=== PATIENT | male | born 1955 | race Two or more races ===

== ENCOUNTER 2017-01-20 09:26 | Emergency (ER) | payer MEDICARE, OTHER ==
[~2017-01-20] VITALS: Ht 167.6 cm; Wt 86.2 kg
[~2017-01-20 09:26] MED LIST: ASP81EC PO; ATOR40TA52 PO; B-COTAB10 PO; FOLI1TAB6 PO; ISOS20TA49 PO; LEVO125T6 PO; MIDO10TA PO; [UNRECOGNIZED DRUG - CODE] PO
[2017-01-20 10:09] VITALS: BP 194/82
[2017-01-20 10:20] LABS: Basophils # (auto) 0 uL; Basophils % (auto) 0.6 % (0.0-2.0); Eosinophils # (auto) 0.4 uL; Eosinophils % (auto) 4.4 % (0.0-7.0); Hemoglobin 12.6 g/dL (13.5-17.5); Lymphocytes # (auto) 1.7 uL; Lymphocytes % (auto) 20.6 % (10.0-50.0); Mean Corpuscular Hemoglobin 32.5 pg (28.0-32.0); Mean Corpuscular Hgb Conc. 34.1 g/dL (32.0-36.0); Mean Corpuscular Volume 95.5 fL (80.0-100.0); Mean Platelet Volume 8.4 fL (6.9-10.8); Monocytes # (auto) 0.8 uL; Monocytes % (auto) 9.6 % (0.0-12.0); Neutrophils # (auto) 5.5 uL; Neutrophils % (auto) 64.8 % (37.0-80.0); Nucleated Red Blood Cells % 0.1 %; Platelet Count (auto) 198 10^3/uL (140-450); Red Cell Distribution Width 14.5 % (11.8-14.3); White Blood Cell 8.4 10^3/uL (4.4-10.8)
[2017-01-20 10:45] LABS: Albumin 3.8 g/dL (3.4-5.0); Alkaline Phosphatase 156 U/L (45-117); Anion Gap 7 (5-15); Aspartate Aminotransferase 17 U/L (15-37); BUN/Creatinine Ratio 6.5; Bilirubin, Total 0.3 mg/dL (0.2-1.0); Blood Urea Nitrogen 29 mg/dL (7-18); Calcium 8.4 mg/dL (8.5-10.1); Carbon Dioxide 33 mmol/L (21-32); Chloride 96 mmol/L (98-107); GFR African American 18 mL/min; GFR Non-African American 14 mL/min; Glucose 241 mg/dL (74-106); Potassium 3.4 mmol/L (3.5-5.1); Sodium 136 mmol/L (136-145); Total Protein 8.6 g/dL (6.4-8.2)
[2017-01-20 10:56] LABS: INR 0.95 (0.9-1.15); Partial Thromboplastin Time 26.8 sec (22.64-33.71); Prothrombin Time 10.3 sec (9.37-12.3)
== END 2017-01-20 13:29 | disposition home or self-care (01) ==
LOC: ER 09:26 → EDBD 09:26 → ER 13:29
DX: T82.43XA Leakage of vascular dialysis catheter, initial encounter (principal); I12.0 Hypertensive chronic kidney disease with stage 5 chronic kidney disease or end stage renal disease; N18.6 End stage renal disease; Z99.2 Dependence on renal dialysis; Z79.82 Long term (current) use of aspirin; X58.XXXA Exposure to other specified factors, initial encounter
CPT/HCPCS: 36415; 71010; 80053; 84484; 85025; 85610; 85730

== ENCOUNTER 2018-10-25 04:09 | Inpatient (IN) | payer MEDICARE, OTHER | END 2018-10-27 19:16 | disposition home or self-care (01) | LOC: ER 04:09 → TELE 04:10 → TELE-WESTW 12:58 | DX: I24.9 Acute ischemic heart disease, unspecified (principal); N18.6 End stage renal disease; J18.9 Pneumonia, unspecified organism; I13.2 Hypertensive heart and chronic kidney disease with heart failure and with stage 5 chronic kidney disease, or end stage renal disease; N39.0 Urinary tract infection, site not specified; E87.1 Hypo-osmolality and hyponatremia; I50.9 Heart failure, unspecified; E11.65 Type 2 diabetes mellitus with hyperglycemia; E78.5 Hyperlipidemia, unspecified; E11.22 Type 2 diabetes mellitus with diabetic chronic kidney disease; E03.9 Hypothyroidism, unspecified; D63.8 Anemia in other chronic diseases classified elsewhere; E11.51 Type 2 diabetes mellitus with diabetic peripheral angiopathy without gangrene ==

== ENCOUNTER → 2019-04-24 | Emergency (ER) | payer MEDICARE, OTHER ==
[~2019-04-24] VITALS: Ht 160 cm; Wt 128.4 kg
[~2019-04-24] MED LIST changes: +ALBUTEROL SULF 2.5 MG/0.5ML(0.5%) NEB SOLN NEB ONE; +CALCIUM GLUC 4.65meq/50ml D5AE 50 ML IV ONE; +DEXTROSE (50%) 50ML SYRG IV ONE; +INSUINJ37 SC; +InsuLIN REG 1unit/0.01ml Soln (100units/ml) IV ONE; -LEVO125T6 PO; +LEVO125T7 PO; -MIDO10TA PO; +MIDO10TA2 PO; +SODIUM BICARBONATE 8.4% INJ 50ML SYRINGE IV ONE; +SODIUM ZIRCONIUM CYCL 10 GM PAK PO ONE; +cloNIDine HCL 0.1 MG TAB PO ONE
[2019-04-24 06:51] LABS: Basophils # (auto) 0.1 10 ^3/uL (0-0.2); Eosinophils # (auto) 0.5 10 ^3/uL (0-0.8); Eosinophils % (auto) 5.4 % (0.0-7.0); Hematocrit 36.4 % (41.0-53.0); Hemoglobin 12.3 g/dL (13.5-17.5); Lymphocytes # (auto) 1.9 10 ^3/uL (0.4-5.4); Lymphocytes % (auto) 20.7 % (10.0-50.0); Mean Corpuscular Hemoglobin 33.4 pg (28.0-32.0); Mean Corpuscular Hgb Conc. 33.9 g/dL (32.0-36.0); Mean Corpuscular Volume 98.6 fL (80.0-100.0); Monocytes # (auto) 0.9 10 ^3/uL (0-1.3); Monocytes % (auto) 10.5 % (0.0-12.0); Neutrophils # (auto) 5.6 10 ^3/uL (1.6-8.6); Neutrophils % (auto) 62.4 % (37.0-80.0); Platelet Count (auto) 185 10^3/uL (140-450); Red Blood Cells 3.69 10^6/uL (4.5-5.90); Red Cell Distribution Width 15.3 % (11.8-14.3)
[2019-04-24 07:04] LABS: INR 1.05 (0.9-1.15); Partial Thromboplastin Time 28.4 sec (23.64-32.05)
[2019-04-24 07:21] LABS: Albumin 3.5 g/dL (3.4-5.0); BUN/Creatinine Ratio 6.4; Bilirubin, Total 0.4 mg/dL (0.2-1.0); Calcium 9.1 mg/dL (8.5-10.1)
[2019-04-24 07:28] LABS: Potassium 6.8 mmol/L (3.5-5.1)
[2019-04-24 08:45] VITALS: BP 186/53
== END | disposition home or self-care (01) ==
LOC: EDUNIT# 04:53 → EDBD 05:02 → ER 05:02
DX: E87.5 Hyperkalemia (principal); D53.9 Nutritional anemia, unspecified; T82.9XXA Unspecified complication of cardiac and vascular prosthetic device, implant and graft, initial encounter; I12.0 Hypertensive chronic kidney disease with stage 5 chronic kidney disease or end stage renal disease; E11.22 Type 2 diabetes mellitus with diabetic chronic kidney disease; N18.6 End stage renal disease; Z99.2 Dependence on renal dialysis; E78.5 Hyperlipidemia, unspecified; Z79.4 Long term (current) use of insulin; Z79.82 Long term (current) use of aspirin; Z79.899 Other long term (current) drug therapy
CPT/HCPCS: 36415; 71045; 80053; 85025; 85610; 85730; 86850; 86900; 86901

== ENCOUNTER → 2019-05-02 | Outpatient (CLI) | payer MEDICARE, OTHER ==
[~2019-05-02] VITALS: Ht 167.6 cm; Wt 82.1 kg
[~2019-05-02] MED LIST changes: +ADENOSINE 69 MG in GIVE UN-DILUTED 0 ML IV ONE; +ADENOSINE 90 MG/30 ML INJ IV ONE; -ALBUTEROL SULF 2.5 MG/0.5ML(0.5%) NEB SOLN NEB ONE; -CALCIUM GLUC 4.65meq/50ml D5AE 50 ML IV ONE; -DEXTROSE (50%) 50ML SYRG IV ONE; -InsuLIN REG 1unit/0.01ml Soln (100units/ml) IV ONE; -SODIUM BICARBONATE 8.4% INJ 50ML SYRINGE IV ONE; -SODIUM ZIRCONIUM CYCL 10 GM PAK PO ONE; -cloNIDine HCL 0.1 MG TAB PO ONE
== END | disposition home or self-care (01) ==
LOC: Rad HDHVI 13:08
PROVIDERS: ATTEND Internal Medicine Cardiovascular Disease
DX: E11.9 Type 2 diabetes mellitus without complications (principal); I10 Essential (primary) hypertension; E78.00 Pure hypercholesterolemia, unspecified
CPT/HCPCS: 78452; 93005; 93306; 96374; 96375; A9500; J0153

== ENCOUNTER → 2019-06-29 | Outpatient (CLI) | payer MEDICARE, OTHER ==
[~2019-06-29] MED LIST changes: -ADENOSINE 69 MG in GIVE UN-DILUTED 0 ML IV ONE; -ADENOSINE 90 MG/30 ML INJ IV ONE
== END | disposition home or self-care (01) ==
LOC: LAB 14:45
PROVIDERS: ATTEND Podiatrist Foot & Ankle Surgery
DX: M10.9 Gout, unspecified (principal)
CPT/HCPCS: 36415; 84550

== ENCOUNTER 2020-03-14 18:56 | Inpatient (IN) | payer OTHER, MEDICAID ==
[~2020-03-14] VITALS: Ht 167.6 cm; Wt 89.0 kg
[2020-03-14] MEDS ORDERED: cefTRIAXone 1GM/50ML D5W 50 ML IV ONE (19:30)
[2020-03-14] MEDS ORDERED: CLINDAMYCIN 900MG IV 50 ML IV ONE (19:30)
[2020-03-14 19:54] LABS: Basophils # (auto) 0.1 10 ^3/uL (0-0.2); Basophils % (auto) 0.5 % (0.0-2.0); Eosinophils # (auto) 0.2 10 ^3/uL (0-0.8); Eosinophils % (auto) 1.6 % (0.0-7.0); Hematocrit 29.7 % (41.0-53.0); Hemoglobin 10.2 g/dL (13.5-17.5); Lymphocytes # (auto) 1.6 10 ^3/uL (0.4-5.4); Lymphocytes % (auto) 12.1 % (10.0-50.0); Mean Corpuscular Hemoglobin 33.1 pg (28.0-32.0); Mean Corpuscular Hgb Conc. 34.4 g/dL (32.0-36.0); Mean Corpuscular Volume 96.2 fL (80.0-100.0); Monocytes # (auto) 1.5 10 ^3/uL (0-1.3); Monocytes % (auto) 11.5 % (0.0-12.0); Neutrophils # (auto) 9.5 10 ^3/uL (1.6-8.6); Neutrophils % (auto) 74.3 % (37.0-80.0); Platelet Count (auto) 270 10^3/uL (140-450); Red Blood Cells 3.09 10^6/uL (4.5-5.90); Red Cell Distribution Width 13.4 % (11.8-14.3); White Blood Cell 12.8 10^3/uL (4.4-10.8)
[2020-03-14 20:08] LABS: Albumin 3.4 g/dL (3.4-5.0); Calcium 8.1 mg/dL (8.5-10.1); INR 1.04 (0.9-1.15); Partial Thromboplastin Time 28.8 sec (23.0-31.2); Potassium 4.3 mmol/L (3.5-5.1)
[2020-03-14 20:11] LABS: BUN/Creatinine Ratio 5.2; Bilirubin, Total 0.4 mg/dL (0.2-1.0); Total Protein 9.1 g/dL (6.4-8.2)
[2020-03-15] MEDS ORDERED: NITROGLYCERIN 0.4 MG SL TAB SL PRN (01:45)
[2020-03-15] MEDS ORDERED: MORPHINE SULFATE 4 MG/ML SYR/VIAL IV PRN (01:45)
[2020-03-15] MEDS ORDERED: HYDROcodone-ACET 5/325MG TAB PO PRN (01:45)
[2020-03-15] MEDS ORDERED: ACETAMINOPHEN 325 MG TAB PO PRN (01:45)
[2020-03-15] MEDS ORDERED: DOCUSATE SOD 100 MG CAP PO PRN (01:45)
[2020-03-15] MEDS ORDERED: MORPHINE SULF INJ 2 MG/ML SYRINGE 1ML IV PRN (01:45)
[2020-03-15] MEDS ORDERED: ONDANSETRON HCL 4 MG/2 ML VIAL IV PRN (01:45)
[2020-03-15] MEDS ORDERED: DEXTROSE (50%) 50ML SYRG IV PRN (01:45)
[2020-03-15] MEDS: InsuLIN REG 1unit/0.01ml Soln (100units/ml) SC SCH ×4 (06:37→22:13)
[2020-03-15] MEDS: ACCU-CHEK COMFORT CURVE STRIP VI SCH ×4 (06:38→22:14)
[2020-03-15 06:42] LABS: Potassium 4.5 mmol/L (3.5-5.1)
[2020-03-15 06:53] LABS: Basophils # (auto) 0.1 10 ^3/uL (0-0.2); Basophils % (auto) 0.9 % (0.0-2.0); Eosinophils # (auto) 0.2 10 ^3/uL (0-0.8); Eosinophils % (auto) 2.4 % (0.0-7.0); Hematocrit 26.3 % (41.0-53.0); Lymphocytes # (auto) 1.6 10 ^3/uL (0.4-5.4); Lymphocytes % (auto) 16.4 % (10.0-50.0); Mean Corpuscular Hemoglobin 32.6 pg (28.0-32.0); Mean Corpuscular Hgb Conc. 34.1 g/dL (32.0-36.0); Mean Corpuscular Volume 95.4 fL (80.0-100.0); Monocytes # (auto) 1.2 10 ^3/uL (0-1.3); Monocytes % (auto) 12.7 % (0.0-12.0); Neutrophils # (auto) 6.6 10 ^3/uL (1.6-8.6); Neutrophils % (auto) 67.6 % (37.0-80.0); Platelet Count (auto) 260 10^3/uL (140-450); Red Blood Cells 2.76 10^6/uL (4.5-5.90); Red Cell Distribution Width 13.5 % (11.8-14.3); White Blood Cell 9.7 10^3/uL (4.4-10.8)
[2020-03-15] MEDS ORDERED: LEVOTHYROXINE SODIUM 50 MCG TAB PO SCH (07:00)
[2020-03-15 07:21] LABS: Albumin 2.7 g/dL (3.4-5.0); BUN/Creatinine Ratio 5.4; Bilirubin, Total 0.3 mg/dL (0.2-1.0); Calcium 7.9 mg/dL (8.5-10.1); Total Protein 7.5 g/dL (6.4-8.2)
[2020-03-15 07:24] LABS: Cholesterol 112 mg/dL (< 200); HDL Cholesterol 34 mg/dL (40-59); LDL Cholesterol 57 mg/dL (< 100); Triglycerides 118 mg/dL (< 150)
[2020-03-15] MEDS: CALCIUM ACETATE 667 MG CAP PO SCH ×3 (08:19→18:19)
[2020-03-15] MEDS: SODIUM CHLOR 0.9% PF (SALINE LOCK) 10ML VIAL/SYR IV SCH ×3 (08:19→21:46)
[2020-03-15] MEDS ORDERED: LABETALOL HCL 5 MG/ML 4ML SYRINGE IV ONE (09:45)
[2020-03-15] MEDS ORDERED: hydrALAZINE HCL 20 MG/ML VL IV ONE (09:45)
[2020-03-15] MEDS ORDERED: ASPirin 81 mg TAB PO SCH ×2 (10:00)
[2020-03-15] MEDS ORDERED: FAMOTIDINE (10MG/ML) 2ML VL IV SCH (10:00)
[2020-03-15] MEDS: ASCORBIC ACID 500 MG TAB PO SCH ×2 (10:18→21:47)
[2020-03-15] MEDS: PIPERACILLIN-TAZOB 2.25GM 50 ML IV SCH (10:18)
[2020-03-15] MEDS: ZINC SULFATE 220mg CAP or TAB PO SCH (10:18)
[2020-03-15] MEDS: B-COMPLEX W/ C & FOLIC ACID(NEPHROVITE TAB) PO SCH (10:18)
[2020-03-15] MEDS: HEPARIN SODIUM (PORCINE) 5000 UNITS/ML 1ML VIAL SC SCH ×2 (10:39→22:00)
[2020-03-15] MEDS: ISOSORBIDE MONONITRATE ER 60 MG TAB PO SCH (10:46)
[2020-03-15] MEDS: FOLIC ACID 1 MG TAB PO SCH (10:47)
[2020-03-15] MEDS ORDERED: PANTOPRAZOLE 40 MG/10 ML VIAL INJ IV ONE (11:30)
[2020-03-15] MEDS ORDERED: hydrALAZINE HCL 20 MG/ML VL IV PRN (12:00)
[2020-03-15] MEDS ORDERED: SODIUM CHL 0.9% 1000 ML BAG XX ONE (12:00)
[2020-03-15 12:10] LABS: Hematocrit 25.5 % (41.0-53.0); Hemoglobin 8.8 g/dL (13.5-17.5)
[2020-03-15] MEDS: CLINDAMYCIN 600MG IV 50 ML IV SCH ×2 (14:02→21:46)
[2020-03-15] MEDS: LABETALOL HCL 5 MG/ML 4ML SYRINGE IV PRN (17:49)
[2020-03-15 17:59] LABS: Hematocrit 25.6 % (41.0-53.0); Hemoglobin 8.8 g/dL (13.5-17.5)
[2020-03-15] MEDS: CALCIUM CARB 500 MG CHEW TAB PO SCH (18:19)
[2020-03-15] MEDS ORDERED: EPOETIN ALFA 4,000 UNIT/ML VL SC ONE (21:00)
[2020-03-15] MEDS ORDERED: HEPARIN SODIUM (PORCINE) 5000 UNITS/ML 1ML VIAL ONE (21:25)
[2020-03-15] MEDS: ATORVASTATIN 20 MG TAB PO SCH (21:47)
[2020-03-15] MEDS: PANTOPRAZOLE 40 MG TAB PO SCH (21:47)
[2020-03-15] MEDS: INSULIN LANTUS (GLARGINE) 1 /0.01ml (100units/ml) SC SCH (22:33)
[2020-03-16] VITALS (11 sets, daily range): BP systolic 127–184; BP diastolic 32–83
[2020-03-16] MEDS: PIPERACILLIN-TAZOB 2.25GM 50 ML IV SCH ×3 (00:27→22:00)
[2020-03-16 02:10] LABS: Hematocrit 24.8 % (41.0-53.0); Hemoglobin 8.5 g/dL (13.5-17.5)
[2020-03-16 05:11] LABS: Eosinophils # (auto) 0.3 10 ^3/uL (0-0.8); Eosinophils % (auto) 2.8 % (0.0-7.0); Hemoglobin 8.3 g/dL (13.5-17.5); Monocytes # (auto) 1.1 10 ^3/uL (0-1.3)
[2020-03-16 05:15] LABS: Basophils # (auto) 0 10 ^3/uL (0-0.2); Basophils % (auto) 0.5 % (0.0-2.0); Hematocrit 23.8 % (41.0-53.0); Lymphocytes # (auto) 1.8 10 ^3/uL (0.4-5.4); Lymphocytes % (auto) 20.3 % (10.0-50.0); Mean Corpuscular Hemoglobin 33.5 pg (28.0-32.0); Mean Corpuscular Hgb Conc. 34.9 g/dL (32.0-36.0); Mean Corpuscular Volume 95.8 fL (80.0-100.0); Monocytes % (auto) 11.8 % (0.0-12.0); Neutrophils # (auto) 5.8 10 ^3/uL (1.6-8.6); Neutrophils % (auto) 64.6 % (37.0-80.0); Platelet Count (auto) 248 10^3/uL (140-450); Red Blood Cells 2.48 10^6/uL (4.5-5.90); Red Cell Distribution Width 13.5 % (11.8-14.3)
[2020-03-16 05:24] LABS: Potassium 4.5 mmol/L (3.5-5.1)
[2020-03-16 05:36] LABS: Albumin 2.6 g/dL (3.4-5.0); BUN/Creatinine Ratio 6.2; Calcium 8.1 mg/dL (8.5-10.1); Total Protein 6.9 g/dL (6.4-8.2)
[2020-03-16 05:37] LABS: Bilirubin, Total 0.3 mg/dL (0.2-1.0)
[2020-03-16] MEDS: CLINDAMYCIN 600MG IV 50 ML IV SCH ×3 (05:43→21:21)
[2020-03-16] MEDS: SODIUM CHLOR 0.9% PF (SALINE LOCK) 10ML VIAL/SYR IV SCH ×3 (06:15→21:57)
[2020-03-16] MEDS: ACCU-CHEK COMFORT CURVE STRIP VI SCH ×4 (07:30→21:56)
[2020-03-16] MEDS: INSULIN LANTUS (GLARGINE) 1 /0.01ml (100units/ml) SC SCH ×2 (07:50→21:56)
[2020-03-16] MEDS: InsuLIN REG 1unit/0.01ml Soln (100units/ml) SC SCH ×4 (07:50→21:55)
[2020-03-16] MEDS: LEVOTHYROXINE SODIUM 50 MCG TAB PO SCH (08:00)
[2020-03-16] MEDS: CALCIUM ACETATE 667 MG CAP PO SCH ×3 (08:07→18:00)
[2020-03-16] MEDS: CALCIUM CARB 500 MG CHEW TAB PO SCH ×2 (08:07→18:00)
[2020-03-16 10:04] LABS: Urine Bacteria FEW /hpf (None Seen); Urine Blood Negative /uL (Negative); Urine Specific Gravity 1.014 (1.001-1.035); Urine Sperm PRESENT /hpf (None Seen); Urine WBC 1 /hpf (0 - 3)
[2020-03-16] MEDS: ISOSORBIDE MONONITRATE ER 60 MG TAB PO SCH (10:30)
[2020-03-16] MEDS: B-COMPLEX W/ C & FOLIC ACID(NEPHROVITE TAB) PO SCH (10:30)
[2020-03-16] MEDS: FOLIC ACID 1 MG TAB PO SCH (10:30)
[2020-03-16] MEDS: PANTOPRAZOLE 40 MG TAB PO SCH ×2 (10:30→21:56)
[2020-03-16] MEDS: HEPARIN SODIUM (PORCINE) 5000 UNITS/ML 1ML VIAL SC SCH ×2 (10:30→21:54)
[2020-03-16] MEDS: ASCORBIC ACID 500 MG TAB PO SCH ×2 (10:30→21:21)
[2020-03-16] MEDS: ZINC SULFATE 220mg CAP or TAB PO SCH (10:30)
[2020-03-16] MEDS: ASPirin-EC 81 mg tab PO SCH (10:30)
[2020-03-16] MEDS ORDERED: CARV6.25 PO (17:37)
[2020-03-16] MEDS: Glucerna Carbsteady SHAKE Vanilla 8oz PO SCH (18:00)
[2020-03-16] MEDS: ATORVASTATIN 20 MG TAB PO SCH (21:20)
[2020-03-16] MEDS: CARVEDILOL 3.125 MG TAB PO SCH (21:20)
[2020-03-17 05:00] VITALS: BP 136/72
[2020-03-17] MEDS: INSULIN LANTUS (GLARGINE) 1 /0.01ml (100units/ml) SC SCH ×2 (06:26→23:46)
[2020-03-17] MEDS: SODIUM CHLOR 0.9% PF (SALINE LOCK) 10ML VIAL/SYR IV SCH ×3 (06:26→23:25)
[2020-03-17] MEDS: ACCU-CHEK COMFORT CURVE STRIP VI SCH ×4 (06:26→23:47)
[2020-03-17] MEDS: InsuLIN REG 1unit/0.01ml Soln (100units/ml) SC SCH ×4 (06:26→23:45)
[2020-03-17] MEDS: LEVOTHYROXINE SODIUM 50 MCG TAB PO SCH (06:39)
[2020-03-17] MEDS: CLINDAMYCIN 600MG IV 50 ML IV SCH ×3 (06:39→23:24)
[2020-03-17] MEDS ORDERED: BUPIVACAINE 0.5% MPF INJ 30ML SDV IJ ONE (07:47)
[2020-03-17] MEDS ORDERED: LIDOCAINE 1% HCL (LOCAL ANESTH.) INJ 20ML MDV ONE (07:47)
[2020-03-17] MEDS ORDERED: BUPIVACAINE HCL 0 ML ONE (07:49)
[2020-03-17] MEDS: CALCIUM CARB 500 MG CHEW TAB PO SCH ×2 (08:00→18:20)
[2020-03-17] MEDS: CALCIUM ACETATE 667 MG CAP PO SCH ×3 (08:00→18:20)
[2020-03-17] MEDS: Glucerna Carbsteady SHAKE Vanilla 8oz PO SCH ×3 (08:00→18:19)
[2020-03-17] MEDS ORDERED: SUCCINYLCHOLINE CHLORIDE 20 MG/ML 10ML VIAL IV ONE (08:23)
[2020-03-17] MEDS ORDERED: LIDOCAINE 1% (LOCAL ANESTH.) PF 5ml SDV ONE (08:23)
[2020-03-17 08:25] LABS: Basophils # (auto) 0.1 10 ^3/uL (0-0.2); Basophils % (auto) 0.7 % (0.0-2.0); Eosinophils # (auto) 0.3 10 ^3/uL (0-0.8); Eosinophils % (auto) 2.7 % (0.0-7.0); Hematocrit 28.3 % (41.0-53.0); Hemoglobin 9.9 g/dL (13.5-17.5); Lymphocytes # (auto) 1.4 10 ^3/uL (0.4-5.4); Lymphocytes % (auto) 14.7 % (10.0-50.0); Mean Corpuscular Hemoglobin 32.7 pg (28.0-32.0); Mean Corpuscular Hgb Conc. 34.8 g/dL (32.0-36.0); Monocytes # (auto) 1.2 10 ^3/uL (0-1.3); Monocytes % (auto) 12.1 % (0.0-12.0); Neutrophils # (auto) 6.8 10 ^3/uL (1.6-8.6); Neutrophils % (auto) 69.8 % (37.0-80.0); Nucleated Red Blood Cells % 0.1 %; Platelet Count (auto) 281 10^3/uL (140-450); Red Blood Cells 3.01 10^6/uL (4.5-5.90); Red Cell Distribution Width 14.4 % (11.8-14.3); White Blood Cell 9.8 10^3/uL (4.4-10.8)
[2020-03-17] MEDS ORDERED: METOCLOPRAMIDE HCL 5MG/ml INJ 2ml VIAL ONE (08:28)
[2020-03-17] MEDS ORDERED: MIDAZOLAM HCL 1MG/1ML-2 ML VIAL ONE (08:28)
[2020-03-17] MEDS ORDERED: diphenhdrAMINE HCL 50 MG/1 ML VL ONE (08:28)
[2020-03-17] MEDS ORDERED: GLYCOPYRROLATE 0.2 MG/ML 1ML VIAL ONE (08:33)
[2020-03-17] MEDS ORDERED: fentaNYL CITRATE 100 MCG/2 ML VL ONE (08:34)
[2020-03-17] MEDS ORDERED: PROPOFOL 10 MG/ML 20 ML IV ONE (08:35)
[2020-03-17 08:45] LABS: Calcium 8.1 mg/dL (8.5-10.1); Potassium 4.5 mmol/L (3.5-5.1)
[2020-03-17 08:48] LABS: BUN/Creatinine Ratio 5.6
[2020-03-17] MEDS ORDERED: ONDANSETRON HCL 4 MG/2 ML VIAL IV PRN (09:00)
[2020-03-17] MEDS ORDERED: hydrALAZINE HCL 20 MG/ML VL IV PRN (09:00)
[2020-03-17] MEDS ORDERED: ACCU-CHEK COMFORT CURVE STRIP VI ONE (09:00)
[2020-03-17] MEDS ORDERED: HYDROmorphone HCL 2 MG/ML VL IV PRN ×2 (09:00)
[2020-03-17] MEDS: HEPARIN SODIUM (PORCINE) 5000 UNITS/ML 1ML VIAL SC SCH ×2 (10:00→23:33)
[2020-03-17] MEDS: PIPERACILLIN-TAZOB 2.25GM 50 ML IV SCH (10:39)
[2020-03-17] MEDS: PANTOPRAZOLE 40 MG TAB PO SCH ×2 (12:42→23:55)
[2020-03-17] MEDS: ISOSORBIDE MONONITRATE ER 60 MG TAB PO SCH (12:42)
[2020-03-17] MEDS: ASPirin-EC 81 mg tab PO SCH (12:42)
[2020-03-17] MEDS: B-COMPLEX W/ C & FOLIC ACID(NEPHROVITE TAB) PO SCH (12:42)
[2020-03-17] MEDS: ASCORBIC ACID 500 MG TAB PO SCH ×2 (12:42→23:55)
[2020-03-17] MEDS: ZINC SULFATE 220mg CAP or TAB PO SCH (12:42)
[2020-03-17] MEDS: FOLIC ACID 1 MG TAB PO SCH (12:42)
[2020-03-17] MEDS: CARVEDILOL 3.125 MG TAB PO SCH ×2 (12:43→23:26)
[2020-03-17] MEDS ORDERED: IOHEXOL 350 MG/ML 100ML IJ ONE (14:21)
[2020-03-17] MEDS ORDERED: LIDOCAINE 2%HCL (LOCAL ANESTH.) INJ 20ML MDV ONE (14:21)
[2020-03-17] MEDS ORDERED: HEPARIN IN NS 1000Units/500mL 0 ML ONE (14:21)
[2020-03-17 16:00] VITALS: BP 138/44
[2020-03-17 20:00] VITALS: BP 185/75
[2020-03-17] MEDS ORDERED: cefTRIAXone 1GM/50ML D5W 50 ML IV SCH (21:00)
[2020-03-17] MEDS: ATORVASTATIN 20 MG TAB PO SCH (23:56)
[2020-03-18] MEDS: CLINDAMYCIN 600MG IV 50 ML IV SCH ×3 (06:12→22:00)
[2020-03-18] MEDS: SODIUM CHLOR 0.9% PF (SALINE LOCK) 10ML VIAL/SYR IV SCH ×3 (06:15→23:58)
[2020-03-18] MEDS: InsuLIN REG 1unit/0.01ml Soln (100units/ml) SC SCH ×3 (06:15→17:18)
[2020-03-18] MEDS: ACCU-CHEK COMFORT CURVE STRIP VI SCH ×3 (06:17→17:14)
[2020-03-18] MEDS: LEVOTHYROXINE SODIUM 50 MCG TAB PO SCH (06:51)
[2020-03-18] MEDS: INSULIN LANTUS (GLARGINE) 1 /0.01ml (100units/ml) SC SCH (07:00)
[2020-03-18] MEDS ORDERED: SODIUM CHL 0.9% 1000 ML BAG XX ONE (07:00)
[2020-03-18 08:00] VITALS: BP 157/65
[2020-03-18] MEDS: Glucerna Carbsteady SHAKE Vanilla 8oz PO SCH ×3 (08:00→17:14)
[2020-03-18] MEDS: CALCIUM ACETATE 667 MG CAP PO SCH ×3 (09:18→17:15)
[2020-03-18] MEDS: ZINC SULFATE 220mg CAP or TAB PO SCH (09:18)
[2020-03-18] MEDS: ASPirin-EC 81 mg tab PO SCH (09:18)
[2020-03-18] MEDS: CALCIUM CARB 500 MG CHEW TAB PO SCH ×2 (09:18→17:15)
[2020-03-18] MEDS: FOLIC ACID 1 MG TAB PO SCH (09:18)
[2020-03-18] MEDS: PANTOPRAZOLE 40 MG TAB PO SCH (09:18)
[2020-03-18] MEDS: HEPARIN SODIUM (PORCINE) 5000 UNITS/ML 1ML VIAL SC SCH (09:19)
[2020-03-18] MEDS: B-COMPLEX W/ C & FOLIC ACID(NEPHROVITE TAB) PO SCH (09:19)
[2020-03-18] MEDS: ASCORBIC ACID 500 MG TAB PO SCH (09:19)
[2020-03-18 10:40] LABS: Basophils # (auto) 0.1 10 ^3/uL (0-0.2); Basophils % (auto) 0.8 % (0.0-2.0); Eosinophils # (auto) 0.2 10 ^3/uL (0-0.8); Eosinophils % (auto) 2.7 % (0.0-7.0); Hemoglobin 9.3 g/dL (13.5-17.5); Lymphocytes # (auto) 1.6 10 ^3/uL (0.4-5.4); Lymphocytes % (auto) 18.1 % (10.0-50.0); Mean Corpuscular Hemoglobin 32.4 pg (28.0-32.0); Mean Corpuscular Hgb Conc. 34.3 g/dL (32.0-36.0); Mean Corpuscular Volume 94.4 fL (80.0-100.0); Monocytes # (auto) 0.7 10 ^3/uL (0-1.3); Monocytes % (auto) 8.3 % (0.0-12.0); Neutrophils # (auto) 6.1 10 ^3/uL (1.6-8.6); Neutrophils % (auto) 70.1 % (37.0-80.0); Platelet Count (auto) 274 10^3/uL (140-450); Red Blood Cells 2.87 10^6/uL (4.5-5.90); Red Cell Distribution Width 14.1 % (11.8-14.3); White Blood Cell 8.8 10^3/uL (4.4-10.8)
[2020-03-18 11:10] LABS: Albumin 2.5 g/dL (3.4-5.0); Calcium 7.8 mg/dL (8.5-10.1); Potassium 4.9 mmol/L (3.5-5.1)
[2020-03-18 11:13] LABS: Bilirubin, Total 0.3 mg/dL (0.2-1.0); Total Protein 7.1 g/dL (6.4-8.2)
[2020-03-18] MEDS: ISOSORBIDE MONONITRATE ER 60 MG TAB PO SCH (14:16)
[2020-03-18] MEDS: CARVEDILOL 3.125 MG TAB PO SCH ×2 (14:16→23:59)
[2020-03-18 16:00] VITALS: BP 173/76
[2020-03-18] MEDS: CEFEPIME 1 GM in SODIUM CHL 0.9% 50 ML IV ONE ×2 (17:15→18:16)
[2020-03-18 20:00] VITALS: BP 133/63
[2020-03-18] MEDS ORDERED: EPOETIN ALFA 10,000 UNIT/1 ML VIAL SC ONE (21:00)
[2020-03-18 22:00] VITALS: BP 133/63
[2020-03-19] MEDS: ATORVASTATIN 20 MG TAB PO SCH (00:01)
[2020-03-19] MEDS: ASCORBIC ACID 500 MG TAB PO SCH ×2 (00:02→11:28)
[2020-03-19] MEDS: PANTOPRAZOLE 40 MG TAB PO SCH ×2 (00:02→11:29)
[2020-03-19] MEDS: HEPARIN SODIUM (PORCINE) 5000 UNITS/ML 1ML VIAL SC SCH ×3 (00:03→22:00)
[2020-03-19] MEDS: InsuLIN REG 1unit/0.01ml Soln (100units/ml) SC SCH ×4 (00:06→18:19)
[2020-03-19] MEDS: INSULIN LANTUS (GLARGINE) 1 /0.01ml (100units/ml) SC SCH ×2 (00:07→07:33)
[2020-03-19] MEDS: ACCU-CHEK COMFORT CURVE STRIP VI SCH ×4 (00:08→17:25)
[2020-03-19] MEDS: CARVEDILOL 3.125 MG TAB PO SCH (00:10)
[2020-03-19 05:00] VITALS: BP 120/49
[2020-03-19] MEDS: CLINDAMYCIN 600MG IV 50 ML IV SCH ×2 (05:41→15:14)
[2020-03-19] MEDS: SODIUM CHLOR 0.9% PF (SALINE LOCK) 10ML VIAL/SYR IV SCH ×2 (06:00→14:00)
[2020-03-19] MEDS: LEVOTHYROXINE SODIUM 50 MCG TAB PO SCH (07:31)
[2020-03-19 08:00] VITALS: BP 140/66
[2020-03-19] MEDS: CALCIUM CARB 500 MG CHEW TAB PO SCH ×2 (08:00→18:00)
[2020-03-19] MEDS: Glucerna Carbsteady SHAKE Vanilla 8oz PO SCH ×3 (08:00→18:19)
[2020-03-19] MEDS: CALCIUM ACETATE 667 MG CAP PO SCH ×3 (08:47→17:56)
[2020-03-19] MEDS: ZINC SULFATE 220mg CAP or TAB PO SCH (11:27)
[2020-03-19] MEDS: FOLIC ACID 1 MG TAB PO SCH (11:27)
[2020-03-19] MEDS: ASPirin-EC 81 mg tab PO SCH (11:27)
[2020-03-19] MEDS: B-COMPLEX W/ C & FOLIC ACID(NEPHROVITE TAB) PO SCH (11:28)
[2020-03-19] MEDS: ISOSORBIDE MONONITRATE ER 60 MG TAB PO SCH (11:30)
[2020-03-19] MEDS: CEFEPIME 0.5 GM in SODIUM CHL 0.9% 50 ML IV SCH (12:42)
[2020-03-19 14:30] LABS: INR 1.04 (0.9-1.15); Partial Thromboplastin Time 29.6 sec (23.0-31.2)
[2020-03-19] MEDS ORDERED: PANT40TA2 PO (15:43)
[2020-03-19] MEDS ORDERED: CEFD300C2 PO (15:43)
[2020-03-19 16:00] VITALS: BP 168/76
[2020-03-19] MEDS: LABETALOL HCL 5 MG/ML 4ML SYRINGE IV PRN (17:55)
[2020-03-19 18:55] VITALS: BP 151/67
[2020-03-19 20:00] VITALS: BP 162/76
[2020-03-19 22:00] VITALS: BP 162/76
[2020-03-19] MEDS ORDERED: HEPARIN SODIUM (PORCINE) 5000 UNITS/ML 1ML VIAL ONE ×2 (22:11→22:12)
[2020-03-20] MEDS: CLINDAMYCIN 600MG IV 50 ML IV SCH ×2 (00:18→06:00)
[2020-03-20] MEDS: SODIUM CHLOR 0.9% PF (SALINE LOCK) 10ML VIAL/SYR IV SCH ×3 (00:18→14:01)
[2020-03-20] MEDS: CARVEDILOL 3.125 MG TAB PO SCH ×2 (00:20→00:41)
[2020-03-20] MEDS: ATORVASTATIN 20 MG TAB PO SCH (00:20)
[2020-03-20] MEDS: PANTOPRAZOLE 40 MG TAB PO SCH ×2 (00:20→10:14)
[2020-03-20] MEDS: ASCORBIC ACID 500 MG TAB PO SCH ×2 (00:21→10:14)
[2020-03-20] MEDS: InsuLIN REG 1unit/0.01ml Soln (100units/ml) SC SCH ×3 (00:32→11:19)
[2020-03-20] MEDS: INSULIN LANTUS (GLARGINE) 1 /0.01ml (100units/ml) SC SCH ×2 (00:33→07:06)
[2020-03-20] MEDS: ACCU-CHEK COMFORT CURVE STRIP VI SCH ×3 (00:35→11:19)
[2020-03-20 05:00] VITALS: BP 145/66
[2020-03-20] MEDS ORDERED: SODIUM CHL 0.9% 1000 ML BAG XX ONE (07:00)
[2020-03-20] MEDS: LEVOTHYROXINE SODIUM 50 MCG TAB PO SCH (07:07)
[2020-03-20 08:00] VITALS: BP_SYST 156; BP_SYST 158; BP_DIAS 71; BP_DIAS 79
[2020-03-20] MEDS: CALCIUM ACETATE 667 MG CAP PO SCH ×2 (08:00→11:20)
[2020-03-20] MEDS: CALCIUM CARB 500 MG CHEW TAB PO SCH (08:00)
[2020-03-20] MEDS: Glucerna Carbsteady SHAKE Vanilla 8oz PO SCH ×2 (08:00→11:20)
[2020-03-20] MEDS: HEPARIN SODIUM (PORCINE) 5000 UNITS/ML 1ML VIAL SC SCH (10:00)
[2020-03-20] MEDS: ISOSORBIDE MONONITRATE ER 60 MG TAB PO SCH (10:14)
[2020-03-20] MEDS: FOLIC ACID 1 MG TAB PO SCH (10:14)
[2020-03-20] MEDS: CEFEPIME 0.5 GM in SODIUM CHL 0.9% 50 ML IV SCH (10:14)
[2020-03-20] MEDS: B-COMPLEX W/ C & FOLIC ACID(NEPHROVITE TAB) PO SCH (10:14)
[2020-03-20] MEDS: ZINC SULFATE 220mg CAP or TAB PO SCH (10:14)
[2020-03-20] MEDS: ASPirin-EC 81 mg tab PO SCH (10:14)
[2020-03-20 14:04] VITALS: BP 145/76
[2020-03-20] MEDS ORDERED: EPOETIN ALFA 10,000 UNIT/1 ML VIAL SC ONE (21:00)
== END 2020-03-20 17:10 | disposition home health service (06) | DRG 255 ==
LOC: ER 18:56 → TELE 03-15 01:44 → TELE-WESTW 03-16 17:06
PROVIDERS: ADMIT Nurse Practitioner Family; ATTEND Internal Medicine
PROC: 30230N1 Transfusion of Nonautologous Red Blood Cells into Peripheral Vein, Open Approach (ICD-10-PCS; 2020-03-16)
PROC: 5A1D70Z Performance of Urinary Filtration, Intermittent, Less than 6 Hours Per Day (ICD-10-PCS; 2020-03-16)
PROC: 0Y6V0Z0 Detachment at Right 4th Toe, Complete, Open Approach (ICD-10-PCS; principal; 2020-03-17 08:24)
PROC: 5A1D70Z Performance of Urinary Filtration, Intermittent, Less than 6 Hours Per Day (ICD-10-PCS; 2020-03-18)
PROC: 5A1D70Z Performance of Urinary Filtration, Intermittent, Less than 6 Hours Per Day (ICD-10-PCS; 2020-03-20)
DX: E11.52 Type 2 diabetes mellitus with diabetic peripheral angiopathy with gangrene (principal); N18.6 End stage renal disease; L03.115 Cellulitis of right lower limb; E87.1 Hypo-osmolality and hyponatremia; I12.0 Hypertensive chronic kidney disease with stage 5 chronic kidney disease or end stage renal disease; M86.8X7 Other osteomyelitis, ankle and foot; E11.621 Type 2 diabetes mellitus with foot ulcer; D63.8 Anemia in other chronic diseases classified elsewhere; E11.65 Type 2 diabetes mellitus with hyperglycemia; D72.829 Elevated white blood cell count, unspecified; I10 Essential (primary) hypertension; I73.9 Peripheral vascular disease, unspecified; E03.9 Hypothyroidism, unspecified; E11.21 Type 2 diabetes mellitus with diabetic nephropathy; E78.5 Hyperlipidemia, unspecified; Z20.822 Contact with and (suspected) exposure to COVID-19; E11.22 Type 2 diabetes mellitus with diabetic chronic kidney disease; E11.69 Type 2 diabetes mellitus with other specified complication; I25.10 Atherosclerotic heart disease of native coronary artery without angina pectoris; L97.519 Non-pressure chronic ulcer of other part of right foot with unspecified severity; Z99.2 Dependence on renal dialysis; Z79.899 Other long term (current) drug therapy; M77.9 Enthesopathy, unspecified
CPT/HCPCS: 36415; 71045; 73700; 80048; 80053; 80061; 81001; 82962; 83036; 83605; 83880; 84443; 84484; 85014; 85018; 85025; 85045; 85610; 85730; 86850; 86900; 86901; 86920; 87040; 87070; 87077; 87147; 87186; 87205; 87426; 90935; 93005; 93926; 96365; 96366; 96368; 96375; C9113; G0378; J0330; J0696; J0885; J1642; J1815; J2001; J2250; J2405; J2543; J2704; J3490

== ENCOUNTER → 2020-03-14 | Outpatient (CLI) | payer OTHER, MEDICAID ==
[~2020-03-14] MED LIST changes: -ASP81EC PO; +ASPI-394 PO
== END | disposition home or self-care (01) ==
LOC: LAB 16:51
PROVIDERS: ATTEND Podiatrist Foot & Ankle Surgery
DX: E11.621 Type 2 diabetes mellitus with foot ulcer (principal)
CPT/HCPCS: 87075; 87205

== ENCOUNTER 2020-10-02 21:18 | Inpatient (IN) | payer OTHER, MEDICAID ==
[~2020-10-02] VITALS: Ht 152.4 cm; Wt 85.8 kg
[~2020-10-02 21:18] MED LIST changes: -B-COTAB10 PO; +CARV6.25 PO; +CEFD300C2 PO; -FOLI1TAB6 PO; +PANT40TA2 PO
[2020-10-02 23:48] LABS: Hematocrit 37.8 % (41.0-53.0); Hemoglobin 12.7 g/dL (13.5-17.5); Mean Corpuscular Hemoglobin 32.9 pg (28.0-32.0); Mean Corpuscular Hgb Conc. 33.6 g/dL (32.0-36.0); Red Blood Cells 3.86 10^6/uL (4.5-5.90); Red Cell Distribution Width 14.4 % (11.8-14.3); White Blood Cell 9.1 10^3/uL (4.4-10.8)
[2020-10-02 23:56] LABS: INR 1.01 (0.9-1.15); Partial Thromboplastin Time 26.8 sec (23.6-33.0)
[2020-10-03 00:02] LABS: Chloride 96 mmol/L (98-107); Potassium 5.5 mmol/L (3.5-5.1); Sodium 133 mmol/L (136-145)
[2020-10-03 00:05] LABS: Basophils % (manual) 0 (0.0-2.0); Blast Cells 0; Metamyelocytes % 0; Myelocytes % 0; Promyelocytes % 0; Reactive Lymphocytes 0
[2020-10-03 00:24] LABS: Alanine Aminotransferase 18 U/L (16-61); Albumin 3.7 g/dL (3.4-5.0); Alkaline Phosphatase 133 U/L (45-117); Anion Gap 8 (5-15); Aspartate Aminotransferase 10 U/L (15-37); BUN/Creatinine Ratio 5.7; Bilirubin, Total 0.4 mg/dL (0.2-1.0); Blood Urea Nitrogen 46 mg/dL (7-18); Calcium 8.9 mg/dL (8.5-10.1); Carbon Dioxide 29 mmol/L (21-32); GFR African American 9 mL/min; GFR Non-African American 7 mL/min; Glucose 134 mg/dL (74-106); Total Protein 8.4 g/dL (6.4-8.2)
[2020-10-03 00:50] LABS: Band Neutrophils % (manual) 7; Eosinophils % (manual) 3 (0-7); Lymphocytes % (manual) 28 (10.0-50.0); Monocytes % (manual) 5 (0-12)
[2020-10-03] MEDS ORDERED: NITROGLYCERIN 0.4 MG SL TAB SL PRN (06:00)
[2020-10-03] MEDS ORDERED: ONDANSETRON HCL 4 MG/2 ML VIAL IV PRN (06:00)
[2020-10-03] MEDS ORDERED: ACETAMINOPHEN 325 MG TAB PO PRN (06:00)
[2020-10-03] MEDS ORDERED: DEXTROSE (50%) 50ML SYRG IV PRN (06:00)
[2020-10-03] MEDS ORDERED: SODIUM ZIRCONIUM CYCL 10 GM PAK PO ONE (06:00)
[2020-10-03] MEDS: InsuLIN REG 1unit/0.01ml Soln (100units/ml) SC SCH ×3 (09:26→18:00)
[2020-10-03] MEDS: LEVOTHYROXINE SODIUM 50 MCG TAB PO SCH (09:26)
[2020-10-03] MEDS: ACCU-CHEK COMFORT CURVE STRIP VI SCH ×3 (09:26→18:00)
[2020-10-03] MEDS: ASPirin 81 mg TAB PO SCH (09:26)
[2020-10-03] MEDS: CARVEDILOL 3.125 MG TAB PO SCH ×2 (09:27→21:46)
[2020-10-03] MEDS: PANTOPRAZOLE 40 MG TAB PO SCH (09:29)
[2020-10-03] MEDS: ISOSORBIDE MONONITRATE ER 60 MG TAB PO SCH (09:29)
[2020-10-03] MEDS: CALCIUM CARB 500 MG CHEW TAB PO SCH ×2 (09:30→21:55)
[2020-10-03 18:36] LABS: Urine Bacteria FEW /hpf (None Seen); Urine Blood Negative /uL (Negative); Urine Specific Gravity 1.009 (1.001-1.035); Urine WBC 9 /hpf (0 - 3)
[2020-10-03] MEDS: ATORVASTATIN 20 MG TAB PO SCH (21:47)
[2020-10-03 22:00] VITALS: BP 164/70
[2020-10-03] MEDS ORDERED: GLIP5TAB12 PO (23:40)
[2020-10-03] MEDS ORDERED: INSLANTI SC (23:40)
[2020-10-03] MEDS ORDERED: FOLI1TAB6 PO (23:40)
[2020-10-04] VITALS (7 sets, daily range): BP systolic 133–206; BP diastolic 62–86
[2020-10-04] MEDS: ACCU-CHEK COMFORT CURVE STRIP VI SCH ×5 (00:33→23:55)
[2020-10-04] MEDS: InsuLIN REG 1unit/0.01ml Soln (100units/ml) SC SCH ×5 (06:00→23:55)
[2020-10-04] MEDS: LEVOTHYROXINE SODIUM 50 MCG TAB PO SCH (06:32)
[2020-10-04] MEDS: cloNIDine HCL 0.1 MG TAB PO PRN ×2 (06:32→21:15)
[2020-10-04] MEDS ORDERED: SODIUM CHL 0.9% 1000 ML BAG XX ONE (07:00)
[2020-10-04 09:02] LABS: Basophils # (auto) 0.1 10 ^3/uL (0-0.2); Basophils % (auto) 0.6 % (0.0-2.0); Eosinophils # (auto) 0.4 10 ^3/uL (0-0.8); Eosinophils % (auto) 4.2 % (0.0-7.0); Hematocrit 39.2 % (41.0-53.0); Hemoglobin 12.7 g/dL (13.5-17.5); Lymphocytes % (auto) 19.4 % (10.0-50.0); Mean Corpuscular Hemoglobin 32.4 pg (28.0-32.0); Mean Corpuscular Hgb Conc. 32.3 g/dL (32.0-36.0); Mean Corpuscular Volume 100.4 fL (80.0-100.0); Monocytes # (auto) 1.1 10 ^3/uL (0-1.3); Monocytes % (auto) 10.1 % (0.0-12.0); Neutrophils % (auto) 65.7 % (37.0-80.0); Red Cell Distribution Width 14.6 % (11.8-14.3); White Blood Cell 10.6 10^3/uL (4.4-10.8)
[2020-10-04 09:03] LABS: Cholesterol 95 mg/dL (< 200)
[2020-10-04 09:04] LABS: Albumin 3.4 g/dL (3.4-5.0); BUN/Creatinine Ratio 7.2; Bilirubin, Total 0.4 mg/dL (0.2-1.0); Total Protein 7.9 g/dL (6.4-8.2)
[2020-10-04 09:06] LABS: HDL Cholesterol 36 mg/dL (40-59); LDL Cholesterol 43 mg/dL (< 100); Triglycerides 125 mg/dL (< 150)
[2020-10-04 09:08] LABS: Potassium 6.3 mmol/L (3.5-5.1)
[2020-10-04] MEDS: ASPirin 81 mg TAB PO SCH (10:53)
[2020-10-04] MEDS: CARVEDILOL 3.125 MG TAB PO SCH ×2 (10:54→21:13)
[2020-10-04] MEDS: PANTOPRAZOLE 40 MG TAB PO SCH (10:54)
[2020-10-04] MEDS: ISOSORBIDE MONONITRATE ER 60 MG TAB PO SCH (10:54)
[2020-10-04] MEDS: CALCIUM CARB 500 MG CHEW TAB PO SCH ×2 (10:55→21:14)
[2020-10-04] MEDS: ATORVASTATIN 20 MG TAB PO SCH (21:14)
[2020-10-05 05:00] VITALS: BP 163/79
[2020-10-05] MEDS: InsuLIN REG 1unit/0.01ml Soln (100units/ml) SC SCH ×4 (06:00→23:57)
[2020-10-05] MEDS: ACCU-CHEK COMFORT CURVE STRIP VI SCH ×3 (06:00→17:48)
[2020-10-05] MEDS: LEVOTHYROXINE SODIUM 50 MCG TAB PO SCH (06:52)
[2020-10-05 08:15] VITALS: BP 116/58
[2020-10-05 09:00] VITALS: BP 116/58
[2020-10-05 09:28] LABS: Basophils # (auto) 0.1 10 ^3/uL (0-0.2); Basophils % (auto) 0.8 % (0.0-2.0); Eosinophils # (auto) 0.3 10 ^3/uL (0-0.8); Eosinophils % (auto) 4.6 % (0.0-7.0); Hematocrit 36.9 % (41.0-53.0); Hemoglobin 12.4 g/dL (13.5-17.5); Lymphocytes # (auto) 1.4 10 ^3/uL (0.4-5.4); Lymphocytes % (auto) 20.7 % (10.0-50.0); Mean Corpuscular Hemoglobin 32.7 pg (28.0-32.0); Mean Corpuscular Hgb Conc. 33.5 g/dL (32.0-36.0); Mean Corpuscular Volume 97.4 fL (80.0-100.0); Monocytes # (auto) 0.9 10 ^3/uL (0-1.3); Monocytes % (auto) 12.8 % (0.0-12.0); Neutrophils # (auto) 4.2 10 ^3/uL (1.6-8.6); Neutrophils % (auto) 61.1 % (37.0-80.0); Nucleated Red Blood Cells % 0.1 %; Red Blood Cells 3.78 10^6/uL (4.5-5.90); Red Cell Distribution Width 14.5 % (11.8-14.3); White Blood Cell 6.9 10^3/uL (4.4-10.8)
[2020-10-05 09:43] LABS: BUN/Creatinine Ratio 5.8; Calcium 8.5 mg/dL (8.5-10.1)
[2020-10-05 10:04] LABS: Potassium 5.8 mmol/L (3.5-5.1)
[2020-10-05] MEDS: ASPirin 81 mg TAB PO SCH (10:11)
[2020-10-05] MEDS: CARVEDILOL 3.125 MG TAB PO SCH ×2 (10:12→21:44)
[2020-10-05] MEDS: CALCIUM CARB 500 MG CHEW TAB PO SCH ×2 (10:14→21:44)
[2020-10-05] MEDS: PANTOPRAZOLE 40 MG TAB PO SCH (10:14)
[2020-10-05] MEDS: ISOSORBIDE MONONITRATE ER 60 MG TAB PO SCH (10:14)
[2020-10-05 13:00] VITALS: BP 198/78
[2020-10-05 16:27] VITALS: BP 179/72
[2020-10-05] MEDS ORDERED: SODIUM ZIRCONIUM CYCL 10 GM PAK PO ONE ×2 (16:45→19:45)
[2020-10-05] MEDS ORDERED: SODIUM BICARBONATE 8.4 % INJ 50ML VIAL IV ONE ×2 (16:45→19:45)
[2020-10-05] MEDS ORDERED: CALCIUM GLUC 1,000mg/50ml-NS 50 ML IV ONE ×2 (16:45→19:45)
[2020-10-05] MEDS: cloNIDine HCL 0.1 MG TAB PO PRN (17:32)
[2020-10-05 19:03] LABS: BUN/Creatinine Ratio 6.7; Calcium 8.8 mg/dL (8.5-10.1)
[2020-10-05 19:10] LABS: Potassium 6.5 mmol/L (3.5-5.1)
[2020-10-05] MEDS ORDERED: InsuLIN REG 1unit/0.01ml Soln (100units/ml) IV ONE (19:45)
[2020-10-05] MEDS ORDERED: DEXTROSE (50%) 50ML SYRG IV ONE (19:45)
[2020-10-05] MEDS: ATORVASTATIN 20 MG TAB PO SCH (21:44)
[2020-10-05 22:00] VITALS: BP 158/60
[2020-10-05 22:45] LABS: BUN/Creatinine Ratio 6.4; Calcium 8.3 mg/dL (8.5-10.1); Potassium 5.2 mmol/L (3.5-5.1)
[2020-10-06] VITALS (10 sets, daily range): BP systolic 111–202; BP diastolic 34–94
[2020-10-06] MEDS: ACCU-CHEK COMFORT CURVE STRIP VI SCH ×5 (00:01→23:20)
[2020-10-06] MEDS: InsuLIN REG 1unit/0.01ml Soln (100units/ml) SC SCH ×4 (06:00→23:19)
[2020-10-06 06:01] LABS: Basophils # (auto) 0.1 10 ^3/uL (0-0.2); Eosinophils # (auto) 0.3 10 ^3/uL (0-0.8); Eosinophils % (auto) 4.2 % (0.0-7.0); Hematocrit 33.1 % (41.0-53.0); Hemoglobin 11.6 g/dL (13.5-17.5); Lymphocytes # (auto) 1.8 10 ^3/uL (0.4-5.4); Mean Corpuscular Hemoglobin 33.4 pg (28.0-32.0); Mean Corpuscular Hgb Conc. 34.9 g/dL (32.0-36.0); Mean Corpuscular Volume 95.6 fL (80.0-100.0); Monocytes # (auto) 1.1 10 ^3/uL (0-1.3); Monocytes % (auto) 15.4 % (0.0-12.0); Neutrophils # (auto) 3.9 10 ^3/uL (1.6-8.6); Neutrophils % (auto) 54.4 % (37.0-80.0); Red Blood Cells 3.46 10^6/uL (4.5-5.90); Red Cell Distribution Width 14.2 % (11.8-14.3); White Blood Cell 7.2 10^3/uL (4.4-10.8)
[2020-10-06 06:35] LABS: BUN/Creatinine Ratio 6.5; Calcium 8.3 mg/dL (8.5-10.1); Magnesium 2.8 mg/dL (1.6-2.6); Potassium 5.3 mmol/L (3.5-5.1)
[2020-10-06] MEDS: ASPirin 81 mg TAB PO SCH (08:10)
[2020-10-06] MEDS: LEVOTHYROXINE SODIUM 50 MCG TAB PO SCH (08:10)
[2020-10-06] MEDS: CARVEDILOL 3.125 MG TAB PO SCH ×2 (08:11→20:44)
[2020-10-06] MEDS: ISOSORBIDE MONONITRATE ER 60 MG TAB PO SCH (08:11)
[2020-10-06] MEDS: CALCIUM CARB 500 MG CHEW TAB PO SCH ×2 (08:11→20:44)
[2020-10-06] MEDS: PANTOPRAZOLE 40 MG TAB PO SCH (08:11)
[2020-10-06] MEDS ORDERED: LIDOCAINE 2%HCL (LOCAL ANESTH.) INJ 20ML MDV ONE (09:49)
[2020-10-06] MEDS ORDERED: IODIXANOL 320MG/ML 100ML BTL IV ONE ×3 (09:49→10:25)
[2020-10-06] MEDS ORDERED: ANGIOMAX 250 MG VIAL IV ONE (09:50)
[2020-10-06] MEDS ORDERED: MIDAZOLAM HCL 2MG/2ML 2ml VIAL (1mg/ml) ONE (09:50)
[2020-10-06] MEDS ORDERED: fentaNYL CITRATE 100 MCG/2 ML VL ONE (09:50)
[2020-10-06] MEDS ORDERED: SODIUM CHL 0.9% 50 ML ONE (09:51)
[2020-10-06] MEDS ORDERED: ATROPINE SULF 1 MG/10ml SYR ONE (10:34)
[2020-10-06] MEDS ORDERED: hydrALAZINE HCL 20 MG/ML VL ONE (10:56)
[2020-10-06] MEDS ORDERED: TICAGRELOR 90 MG TAB ONE (10:58)
[2020-10-06] MEDS: cloNIDine HCL 0.1 MG TAB PO PRN (16:22)
[2020-10-06 20:06] LABS: Calcium 8.4 mg/dL (8.5-10.1)
[2020-10-06 20:18] LABS: BUN/Creatinine Ratio 6.8
[2020-10-06 20:23] LABS: Potassium 6.2 mmol/L (3.5-5.1)
[2020-10-06] MEDS: ATORVASTATIN 20 MG TAB PO SCH (20:43)
[2020-10-06] MEDS: MORPHINE SULFATE INJECTION 2 MG/2 ML SYRG IV PRN (20:45)
[2020-10-06] MEDS: TICAGRELOR 90 MG TAB PO SCH (22:00)
[2020-10-07 05:00] VITALS: BP 158/69
[2020-10-07] MEDS: ACCU-CHEK COMFORT CURVE STRIP VI SCH ×3 (05:58→17:24)
[2020-10-07] MEDS: InsuLIN REG 1unit/0.01ml Soln (100units/ml) SC SCH ×3 (05:58→17:26)
[2020-10-07] MEDS: LEVOTHYROXINE SODIUM 50 MCG TAB PO SCH (05:59)
[2020-10-07 06:56] LABS: Basophils # (auto) 0 10 ^3/uL (0-0.2); Basophils % (auto) 0.6 % (0.0-2.0); Eosinophils # (auto) 0.3 10 ^3/uL (0-0.8); Eosinophils % (auto) 3.9 % (0.0-7.0); Hematocrit 33.3 % (41.0-53.0); Hemoglobin 11.5 g/dL (13.5-17.5); Lymphocytes # (auto) 1.7 10 ^3/uL (0.4-5.4); Lymphocytes % (auto) 21.3 % (10.0-50.0); Mean Corpuscular Hemoglobin 33.2 pg (28.0-32.0); Mean Corpuscular Hgb Conc. 34.5 g/dL (32.0-36.0); Mean Corpuscular Volume 96.4 fL (80.0-100.0); Monocytes # (auto) 1.1 10 ^3/uL (0-1.3); Monocytes % (auto) 14.6 % (0.0-12.0); Neutrophils # (auto) 4.6 10 ^3/uL (1.6-8.6); Neutrophils % (auto) 59.6 % (37.0-80.0); Nucleated Red Blood Cells % 0.1 %; Red Blood Cells 3.45 10^6/uL (4.5-5.90); Red Cell Distribution Width 14.3 % (11.8-14.3); White Blood Cell 7.8 10^3/uL (4.4-10.8)
[2020-10-07] MEDS ORDERED: SODIUM CHL 0.9% 1000 ML BAG XX ONE (07:00)
[2020-10-07 07:15] LABS: BUN/Creatinine Ratio 6.9; Magnesium 2.5 mg/dL (1.6-2.6)
[2020-10-07 08:37] LABS: Potassium 5.9 mmol/L (3.5-5.1)
[2020-10-07 09:00] VITALS: BP 185/76
[2020-10-07] MEDS: ASPirin 81 mg TAB PO SCH (09:55)
[2020-10-07] MEDS: TICAGRELOR 90 MG TAB PO SCH ×2 (09:55→22:01)
[2020-10-07] MEDS: PANTOPRAZOLE 40 MG TAB PO SCH (09:56)
[2020-10-07] MEDS: CALCIUM CARB 500 MG CHEW TAB PO SCH ×2 (09:56→22:02)
[2020-10-07] MEDS: ISOSORBIDE MONONITRATE ER 60 MG TAB PO SCH (09:56)
[2020-10-07] MEDS: CARVEDILOL 3.125 MG TAB PO SCH ×2 (09:56→22:01)
[2020-10-07 12:27] VITALS: BP 163/61
[2020-10-07 16:51] VITALS: BP 127/65
[2020-10-07 22:00] VITALS: BP 175/75
[2020-10-07] MEDS: ATORVASTATIN 20 MG TAB PO SCH (22:02)
[2020-10-08] VITALS (11 sets, daily range): BP systolic 101–172; BP diastolic 47–88
[2020-10-08] MEDS: ACCU-CHEK COMFORT CURVE STRIP VI SCH ×4 (00:14→17:58)
[2020-10-08] MEDS: InsuLIN REG 1unit/0.01ml Soln (100units/ml) SC SCH ×4 (00:16→17:58)
[2020-10-08] MEDS: LEVOTHYROXINE SODIUM 50 MCG TAB PO SCH (06:34)
[2020-10-08 06:41] LABS: Basophils # (auto) 0.1 10 ^3/uL (0-0.2); Basophils % (auto) 0.8 % (0.0-2.0); Eosinophils # (auto) 0.2 10 ^3/uL (0-0.8); Eosinophils % (auto) 3.1 % (0.0-7.0); Hemoglobin 11.4 g/dL (13.5-17.5); Lymphocytes # (auto) 1.4 10 ^3/uL (0.4-5.4); Lymphocytes % (auto) 17.5 % (10.0-50.0); Mean Corpuscular Hemoglobin 33.7 pg (28.0-32.0); Mean Corpuscular Hgb Conc. 34.5 g/dL (32.0-36.0); Mean Corpuscular Volume 97.7 fL (80.0-100.0); Monocytes # (auto) 1.1 10 ^3/uL (0-1.3); Monocytes % (auto) 13.9 % (0.0-12.0); Neutrophils # (auto) 5.1 10 ^3/uL (1.6-8.6); Neutrophils % (auto) 64.7 % (37.0-80.0); Nucleated Red Blood Cells % 0.1 %; Red Blood Cells 3.37 10^6/uL (4.5-5.90); Red Cell Distribution Width 14.5 % (11.8-14.3); White Blood Cell 7.9 10^3/uL (4.4-10.8)
[2020-10-08 07:03] LABS: Anion Gap 7 (5-15); BUN/Creatinine Ratio 5.2; Blood Urea Nitrogen 44 mg/dL (7-18); Calcium 8.1 mg/dL (8.5-10.1); Carbon Dioxide 27 mmol/L (21-32); Chloride 100 mmol/L (98-107); GFR African American 8 mL/min; GFR Non-African American 7 mL/min; Glucose 132 mg/dL (74-106); Potassium 5.1 mmol/L (3.5-5.1); Sodium 134 mmol/L (136-145)
[2020-10-08] MEDS: CALCIUM CARB 500 MG CHEW TAB PO SCH ×2 (09:35→21:12)
[2020-10-08] MEDS: PANTOPRAZOLE 40 MG TAB PO SCH (09:36)
[2020-10-08] MEDS: CARVEDILOL 3.125 MG TAB PO SCH ×2 (09:37→21:18)
[2020-10-08] MEDS: TICAGRELOR 90 MG TAB PO SCH ×2 (09:37→21:12)
[2020-10-08] MEDS: ISOSORBIDE MONONITRATE ER 60 MG TAB PO SCH (09:37)
[2020-10-08] MEDS: ASPirin 81 mg TAB PO SCH (09:37)
[2020-10-08] MEDS: cloNIDine HCL 0.1 MG TAB PO PRN (11:12)
[2020-10-08] MEDS ORDERED: LIDOCAINE 2%HCL (LOCAL ANESTH.) INJ 20ML MDV ONE (12:22)
[2020-10-08] MEDS ORDERED: ANGIOMAX 250 MG VIAL IV ONE (12:25)
[2020-10-08] MEDS ORDERED: fentaNYL CITRATE 100 MCG/2 ML VL ONE (12:25)
[2020-10-08] MEDS ORDERED: MIDAZOLAM HCL 2MG/2ML 2ml VIAL (1mg/ml) ONE (12:25)
[2020-10-08] MEDS ORDERED: SODIUM CHL 0.9% 50 ML ONE (12:26)
[2020-10-08] MEDS: ATORVASTATIN 20 MG TAB PO SCH (21:12)
[2020-10-08] MEDS: MORPHINE SULFATE INJECTION 2 MG/2 ML SYRG IV PRN (21:31)
[2020-10-09] MEDS: ACCU-CHEK COMFORT CURVE STRIP VI SCH ×4 (00:06→18:00)
[2020-10-09] MEDS: InsuLIN REG 1unit/0.01ml Soln (100units/ml) SC SCH ×4 (00:08→18:00)
[2020-10-09 05:00] VITALS: BP 168/75
[2020-10-09] MEDS: cloNIDine HCL 0.1 MG TAB PO PRN ×2 (05:30→17:31)
[2020-10-09] MEDS: LEVOTHYROXINE SODIUM 50 MCG TAB PO SCH (06:26)
[2020-10-09 06:43] LABS: Hematocrit 31.8 % (41.0-53.0); Hemoglobin 11.1 g/dL (13.5-17.5)
[2020-10-09] MEDS ORDERED: SODIUM CHL 0.9% 1000 ML BAG XX ONE (07:00)
[2020-10-09 07:21] LABS: Potassium 5.5 mmol/L (3.5-5.1)
[2020-10-09 07:31] LABS: BUN/Creatinine Ratio 5.6; Calcium 8.5 mg/dL (8.5-10.1)
[2020-10-09 07:41] LABS: % Iron Saturation 39.9 % (20-55)
[2020-10-09 09:00] VITALS: BP 140/45
[2020-10-09] MEDS: ASPirin 81 mg TAB PO SCH (10:00)
[2020-10-09] MEDS: ISOSORBIDE MONONITRATE ER 60 MG TAB PO SCH (10:00)
[2020-10-09] MEDS: CARVEDILOL 3.125 MG TAB PO SCH (10:00)
[2020-10-09] MEDS: TICAGRELOR 90 MG TAB PO SCH (10:00)
[2020-10-09] MEDS: CALCIUM CARB 500 MG CHEW TAB PO SCH (10:36)
[2020-10-09] MEDS: PANTOPRAZOLE 40 MG TAB PO SCH (10:36)
[2020-10-09 13:00] VITALS: BP 178/79
[2020-10-09 15:35] LABS: Hepatitis A Ab IgM Negative; Hepatitis B Core IgM Negative; Hepatitis B Surface Antigen Negative (Negative); Hepatitis C Antibody Negative (Negative)
[2020-10-09 17:00] VITALS: BP 171/69
[2020-10-09] MEDS ORDERED: TICA90TA PO (18:40)
[2020-10-09] MEDS ORDERED: ASPI1CHW15 PO (18:40)
[2020-10-09] MEDS ORDERED: NITR0.4S29 SL (18:40)
[2020-10-09] MEDS ORDERED: ATOR20TA50 PO (18:40)
== END 2020-10-09 23:40 | disposition home or self-care (01) | DRG 246 ==
LOC: ER 21:18 → TELE 10-03 06:00 → TELE-CENTR 10-03 19:46
PROVIDERS: ADMIT Nurse Practitioner; ATTEND Internal Medicine Geriatric Medicine
PROC: 5A1D70Z Performance of Urinary Filtration, Intermittent, Less than 6 Hours Per Day (ICD-10-PCS; 2020-10-04)
PROC: 02703ZZ Dilation of Coronary Artery, One Artery, Percutaneous Approach (ICD-10-PCS; principal; 2020-10-06)
PROC: 027034Z Dilation of Coronary Artery, One Artery with Drug-eluting Intraluminal Device, Percutaneous Approach (ICD-10-PCS; 2020-10-06)
PROC: B211YZZ Fluoroscopy of Multiple Coronary Arteries using Other Contrast (ICD-10-PCS; 2020-10-06)
PROC: B215YZZ Fluoroscopy of Left Heart using Other Contrast (ICD-10-PCS; 2020-10-06)
PROC: 4A023N7 Measurement of Cardiac Sampling and Pressure, Left Heart, Percutaneous Approach (ICD-10-PCS; 2020-10-06)
PROC: 5A1D70Z Performance of Urinary Filtration, Intermittent, Less than 6 Hours Per Day (ICD-10-PCS; 2020-10-07)
PROC: 027236Z Dilation of Coronary Artery, Three Arteries with Three Drug-eluting Intraluminal Devices, Percutaneous Approach (ICD-10-PCS; 2020-10-08)
PROC: 5A1D70Z Performance of Urinary Filtration, Intermittent, Less than 6 Hours Per Day (ICD-10-PCS; 2020-10-09)
DX: I25.110 Atherosclerotic heart disease of native coronary artery with unstable angina pectoris (principal); N18.6 End stage renal disease; I12.0 Hypertensive chronic kidney disease with stage 5 chronic kidney disease or end stage renal disease; E87.5 Hyperkalemia; D63.1 Anemia in chronic kidney disease; E11.22 Type 2 diabetes mellitus with diabetic chronic kidney disease; E11.51 Type 2 diabetes mellitus with diabetic peripheral angiopathy without gangrene; E78.5 Hyperlipidemia, unspecified; E03.9 Hypothyroidism, unspecified; Z20.822 Contact with and (suspected) exposure to COVID-19; Z99.2 Dependence on renal dialysis; I25.2 Old myocardial infarction; Z79.01 Long term (current) use of anticoagulants; Z80.1 Family history of malignant neoplasm of trachea, bronchus and lung
CPT/HCPCS: 36415; 71045; 80048; 80053; 80061; 80074; 81001; 82728; 82962; 83540; 83550; 83735; 83880; 84443; 84484; 85007; 85014; 85018; 85025; 85027; 85379; 85610; 85730; 86850; 86900; 86901; 87081; 87426; 90935; 93005; 93306; 99152; 99153; C1874; G0378; J1642; J1815; J2250; Q9967

== ENCOUNTER 2021-02-18 16:39 | Emergency (ER) | payer OTHER, MEDICAID ==
[~2021-02-18] VITALS: Ht 167.6 cm; Wt 83.5 kg
[~2021-02-18 16:39] MED LIST changes: +ASPI1CHW15 PO; +ATOR20TA50 PO; -CEFD300C2 PO; +FOLI1TAB6 PO; +GLIP5TAB12 PO; +INSLANTI SC; -INSUINJ37 SC; +NITR0.4S29 SL; +TICA90TA PO
[2021-02-19] MEDS ORDERED: AZITTAB PO (00:38)
[2021-02-19] MEDS ORDERED: FURO1TAB33 PO (00:39)
[2021-02-19 00:58] VITALS: BP 133/87
== END 2021-02-19 01:01 | disposition home or self-care (01) ==
LOC: ER 16:39
DX: J81.1 Chronic pulmonary edema (principal); J90 Pleural effusion, not elsewhere classified; E11.22 Type 2 diabetes mellitus with diabetic chronic kidney disease; I12.0 Hypertensive chronic kidney disease with stage 5 chronic kidney disease or end stage renal disease; N18.6 End stage renal disease; E78.5 Hyperlipidemia, unspecified; Z20.822 Contact with and (suspected) exposure to COVID-19
CPT/HCPCS: 36415; 71046; 87426

== ENCOUNTER 2021-02-23 16:59 | Inpatient (IN) | payer OTHER, MEDICAID ==
[~2021-02-23] VITALS: Ht 167.6 cm; Wt 80.0 kg
[~2021-02-23 16:59] MED LIST changes: +AZITTAB PO; +FURO1TAB33 PO
[2021-02-23 20:46] LABS: Basophils # (auto) 0 10 ^3/uL (0-0.2); Basophils % (auto) 0.3 % (0.0-2.0); Eosinophils # (auto) 0 10 ^3/uL (0-0.8); Eosinophils % (auto) 0.2 % (0.0-7.0); Hematocrit 32.2 % (41.0-53.0); Hemoglobin 10.7 g/dL (13.5-17.5); Lymphocytes # (auto) 1.2 10 ^3/uL (0.4-5.4); Lymphocytes % (auto) 8.4 % (10.0-50.0); Mean Corpuscular Hemoglobin 32.2 pg (28.0-32.0); Mean Corpuscular Hgb Conc. 33.2 g/dL (32.0-36.0); Mean Corpuscular Volume 97.1 fL (80.0-100.0); Monocytes # (auto) 0.7 10 ^3/uL (0-1.3); Monocytes % (auto) 5.1 % (0.0-12.0); Nucleated Red Blood Cells % 1.6 %; Red Blood Cells 3.32 10^6/uL (4.5-5.90); Red Cell Distribution Width 14.9 % (11.8-14.3)
[2021-02-23 21:04] LABS: Potassium 4.9 mmol/L (3.5-5.1)
[2021-02-23 21:28] LABS: Albumin 3.7 g/dL (3.4-5.0); BUN/Creatinine Ratio 7.3; Bilirubin, Total 0.7 mg/dL (0.2-1.0); Calcium 8.9 mg/dL (8.5-10.1); Total Protein 8.3 g/dL (6.4-8.2)
[2021-02-24] MEDS ORDERED: HEPARIN SODIUM (PORCINE) 5000 UNITS/ML 1ML VIAL IV ONE (04:15)
[2021-02-24] MEDS ORDERED: NITROGLYCERIN 0.4 MG SL TAB SL PRN (09:00)
[2021-02-24] MEDS ORDERED: ASPirin 81 mg TAB PO ONE (09:00)
[2021-02-24] MEDS ORDERED: HEPARIN DRIP/D5W 100UNITS/ML 250 ML IV SCH (09:45)
[2021-02-24] MEDS: ASPirin 81 mg TAB PO SCH (10:00)
[2021-02-24] MEDS ORDERED: TICAGRELOR 90 MG TAB PO SCH (10:00)
[2021-02-24] MEDS ORDERED: ENOXAPARIN SOD 100 MG/1 ML SYRINGE SC SCH (10:00)
[2021-02-24 10:26] LABS: Basophils # (auto) 0 10 ^3/uL (0-0.2); Basophils % (auto) 0.4 % (0.0-2.0); Eosinophils # (auto) 0 10 ^3/uL (0-0.8); Eosinophils % (auto) 0.2 % (0.0-7.0); Hematocrit 33.1 % (41.0-53.0); Hemoglobin 11.1 g/dL (13.5-17.5); Lymphocytes % (auto) 7.9 % (10.0-50.0); Mean Corpuscular Hemoglobin 32.8 pg (28.0-32.0); Mean Corpuscular Hgb Conc. 33.5 g/dL (32.0-36.0); Mean Corpuscular Volume 97.8 fL (80.0-100.0); Monocytes # (auto) 0.8 10 ^3/uL (0-1.3); Monocytes % (auto) 6.3 % (0.0-12.0); Neutrophils # (auto) 10.8 10 ^3/uL (1.6-8.6); Neutrophils % (auto) 85.2 % (37.0-80.0); Nucleated Red Blood Cells % 2.5 %; Red Blood Cells 3.39 10^6/uL (4.5-5.90); White Blood Cell 12.7 10^3/uL (4.4-10.8)
[2021-02-24] MEDS: CARVEDILOL 3.125 MG TAB PO SCH ×2 (10:34→22:05)
[2021-02-24 10:46] LABS: INR 1.56 (0.9-1.15); Partial Thromboplastin Time 26.2 sec (23.6-33.0)
[2021-02-24] MEDS: TICAGRELOR 90 MG TAB PO SCH ×2 (10:58→22:04)
[2021-02-24] MEDS: SODIUM CHLOR 0.9% PF (SALINE LOCK) 10ML VIAL/SYR IV SCH ×2 (14:00→22:09)
[2021-02-24] MEDS ORDERED: SODIUM CHL 0.9% 1000 ML BAG XX ONE (15:30)
[2021-02-24 16:08] LABS: INR 1.66 (0.9-1.15); Partial Thromboplastin Time 35.6 sec (23.6-33.0)
[2021-02-24] MEDS ORDERED: LORazepam 2MG/ML-1ML VIAL IV STA (16:24)
[2021-02-24] MEDS ORDERED: HALOPERIDOL LACTATE 5 MG/ML INJ VIAL IM ONE (16:30)
[2021-02-24] MEDS: NOREPINEPHRINE 8 MG/250ML KIT 250 ML IV SCH (19:48)
[2021-02-24 19:51] LABS: INR 1.98 (0.9-1.15)
[2021-02-24] MEDS ORDERED: NOREPINEPHRINE 8 MG/250ML KIT 250 ML IV ONE (19:52)
[2021-02-24] MEDS: HEPARIN DRIP/D5W 100UNITS/ML 250 ML IV SCH (20:00)
[2021-02-24] MEDS ORDERED: ATORVASTATIN 20 MG TAB PO SCH (22:00)
[2021-02-24] MEDS ORDERED: ACETAMINOPHEN 325 MG TAB PO PRN (23:00)
[2021-02-24] MEDS ORDERED: PROPOFOL 100 ML IV ONE (23:59)
[2021-02-25] VITALS (8 sets, daily range): BP systolic 104–150; BP diastolic 40–67
[2021-02-25] MEDS: PROPOFOL 100 ML IV SCH
[2021-02-25] MEDS: fentaNYL Drip 2500mCg/250mlNS 250 ML IV SCH (00:32)
[2021-02-25] MEDS ORDERED: fentaNYL Drip 2500mCg/250mlNS 250 ML IV ONE (00:32)
[2021-02-25 00:34] LABS: BUN/Creatinine Ratio 7.7; Calcium 8.6 mg/dL (8.5-10.1); Potassium 4.8 mmol/L (3.5-5.1)
[2021-02-25 01:10] LABS: INR 1.77 (0.9-1.15); Partial Thromboplastin Time 30.6 sec (23.6-33.0)
[2021-02-25] MEDS ORDERED: HEPARIN SODIUM (PORCINE) 5000 UNITS/ML 1ML VIAL ONE (02:22)
[2021-02-25] MEDS ORDERED: ACETAMINOPHEN 650 mg PER 20.3 mL UD GT PRN (03:00)
[2021-02-25 03:38] LABS: Eosinophils % (auto) 0.3 % (0.0-7.0); Hemoglobin 9.2 g/dL (13.5-17.5)
[2021-02-25 03:40] LABS: Basophils # (auto) 0.1 10 ^3/uL (0-0.2); Basophils % (auto) 0.3 % (0.0-2.0); Eosinophils # (auto) 0 10 ^3/uL (0-0.8); Hematocrit 28.4 % (41.0-53.0); Lymphocytes # (auto) 2.4 10 ^3/uL (0.4-5.4); Lymphocytes % (auto) 14.6 % (10.0-50.0); Mean Corpuscular Hemoglobin 33.2 pg (28.0-32.0); Mean Corpuscular Hgb Conc. 32.5 g/dL (32.0-36.0); Monocytes # (auto) 1.1 10 ^3/uL (0-1.3); Monocytes % (auto) 6.7 % (0.0-12.0); Neutrophils # (auto) 12.7 10 ^3/uL (1.6-8.6); Neutrophils % (auto) 78.1 % (37.0-80.0); Red Blood Cells 2.78 10^6/uL (4.5-5.90); Red Cell Distribution Width 15.5 % (11.8-14.3); White Blood Cell 16.3 10^3/uL (4.4-10.8)
[2021-02-25 03:47] LABS: Albumin 3.1 g/dL (3.4-5.0); BUN/Creatinine Ratio 7.2
[2021-02-25 03:57] LABS: Bilirubin, Total 1.1 mg/dL (0.2-1.0); Total Protein 6.6 g/dL (6.4-8.2)
[2021-02-25 04:24] LABS: Nucleated Red Blood Cells % 6.5 %
[2021-02-25] MEDS: SODIUM CHLOR 0.9% PF (SALINE LOCK) 10ML VIAL/SYR IV SCH ×3 (06:00→20:12)
[2021-02-25 07:53] LABS: INR 1.99 (0.9-1.15)
[2021-02-25 08:06] LABS: Partial Thromboplastin Time 77.8 sec (23.6-33.0)
[2021-02-25] MEDS: CARVEDILOL 3.125 MG TAB PO SCH ×2 (10:00→22:11)
[2021-02-25] MEDS ORDERED: VANCOMYCIN 1GM/250ML 250 ML IV ONE (10:15)
[2021-02-25] MEDS ORDERED: VANCOMYCIN PER PHARMACY 0 MG IV SCH (10:15)
[2021-02-25] MEDS: PANTOPRAZOLE 40 MG/10 ML VIAL INJ IV SCH (11:07)
[2021-02-25] MEDS: ASPirin 81 mg TAB PO SCH (11:22)
[2021-02-25] MEDS: TICAGRELOR 90 MG TAB PO SCH ×2 (11:59→22:10)
[2021-02-25] MEDS ORDERED: EPINEPHrine HCL 1 MG/10 ML SYRG IV ONE (12:48)
[2021-02-25] MEDS ORDERED: SODIUM BICARBONATE 8.4% INJ 50ML SYRINGE IV ONE (12:48)
[2021-02-25 14:23] LABS: INR 2.01 (0.9-1.15); Partial Thromboplastin Time 55.1 sec (23.6-33.0)
[2021-02-25] MEDS: PIPERACILLIN-TAZOB 2.25GM 50 ML IV SCH ×2 (14:23→22:10)
[2021-02-25] MEDS: HEPARIN DRIP/D5W 100UNITS/ML 250 ML IV SCH (15:11)
[2021-02-25 20:04] LABS: INR 1.99 (0.9-1.15); Partial Thromboplastin Time 54.8 sec (23.6-33.0)
[2021-02-25] MEDS: NOREPINEPHRINE 8 MG/250ML KIT 250 ML IV SCH (20:11)
[2021-02-26] VITALS (8 sets, daily range): BP systolic 95–126; BP diastolic 40–57
[2021-02-26] MEDS: fentaNYL Drip 2500mCg/250mlNS 250 ML IV SCH (00:26)
[2021-02-26] MEDS: PROPOFOL 100 ML IV SCH (01:49)
[2021-02-26 04:53] LABS: Basophils # (auto) 0.1 10 ^3/uL (0-0.2); Basophils % (auto) 0.5 % (0.0-2.0); Eosinophils # (auto) 0.3 10 ^3/uL (0-0.8); Lymphocytes # (auto) 1.2 10 ^3/uL (0.4-5.4)
[2021-02-26 04:55] LABS: Eosinophils % (auto) 2.8 % (0.0-7.0); Hematocrit 24.8 % (41.0-53.0); Hemoglobin 8.3 g/dL (13.5-17.5); Mean Corpuscular Hemoglobin 32.9 pg (28.0-32.0); Mean Corpuscular Hgb Conc. 33.7 g/dL (32.0-36.0); Mean Corpuscular Volume 97.6 fL (80.0-100.0); Monocytes # (auto) 0.9 10 ^3/uL (0-1.3); Monocytes % (auto) 7.5 % (0.0-12.0); Neutrophils # (auto) 9.7 10 ^3/uL (1.6-8.6); Neutrophils % (auto) 79.2 % (37.0-80.0); Red Blood Cells 2.54 10^6/uL (4.5-5.90); Red Cell Distribution Width 15.2 % (11.8-14.3); White Blood Cell 12.2 10^3/uL (4.4-10.8)
[2021-02-26 05:12] LABS: Albumin 2.5 g/dL (3.4-5.0); BUN/Creatinine Ratio 7.9; Calcium 7.1 mg/dL (8.5-10.1); Magnesium 2.7 mg/dL (1.6-2.6); Potassium 5.3 mmol/L (3.5-5.1)
[2021-02-26 05:13] LABS: Nucleated Red Blood Cells % 6.6 %
[2021-02-26 05:15] LABS: INR 1.82 (0.9-1.15); Partial Thromboplastin Time 68.7 sec (23.6-33.0)
[2021-02-26 05:20] LABS: Bilirubin, Total 1.1 mg/dL (0.2-1.0); Total Protein 5.8 g/dL (6.4-8.2)
[2021-02-26] MEDS: SODIUM CHLOR 0.9% PF (SALINE LOCK) 10ML VIAL/SYR IV SCH ×3 (05:41→22:28)
[2021-02-26] MEDS: PIPERACILLIN-TAZOB 2.25GM 50 ML IV SCH ×3 (05:59→22:26)
[2021-02-26] MEDS ORDERED: VANCOMYCIN 1GM/250ML 250 ML IV ONE (08:30)
[2021-02-26] MEDS ORDERED: ALBUMIN 25% 100 ML IV PRN (09:30)
[2021-02-26] MEDS: TICAGRELOR 90 MG TAB PO SCH ×2 (10:00→22:26)
[2021-02-26] MEDS: CARVEDILOL 3.125 MG TAB PO SCH ×2 (10:00→22:28)
[2021-02-26] MEDS: ASPirin 81 mg TAB PO SCH (10:00)
[2021-02-26] MEDS: PANTOPRAZOLE 40 MG/10 ML VIAL INJ IV SCH (10:10)
[2021-02-26 12:26] LABS: Hepatitis A Total Antibody Positive (Negative)
[2021-02-26 13:06] LABS: Hepatitis B Surface Antibody Positive (Negative)
[2021-02-26 14:12] LABS: Hepatitis A Ab IgM Negative
[2021-02-26 14:13] LABS: Hepatitis B Core IgM Negative; Hepatitis C Antibody Negative (Negative)
[2021-02-26] MEDS: NOREPINEPHRINE 8 MG/250ML KIT 250 ML IV SCH (19:48)
[2021-02-27] MEDS: fentaNYL Drip 2500mCg/250mlNS 250 ML IV SCH (00:30)
[2021-02-27 01:50] VITALS: BP 110/53
[2021-02-27 06:30] VITALS: BP 112/46
[2021-02-27] MEDS: PIPERACILLIN-TAZOB 2.25GM 50 ML IV SCH (06:40)
[2021-02-27] MEDS: SODIUM CHLOR 0.9% PF (SALINE LOCK) 10ML VIAL/SYR IV SCH ×3 (06:41→22:22)
[2021-02-27] MEDS: PROPOFOL 100 ML IV SCH (06:41)
[2021-02-27 07:44] LABS: Basophils # (auto) 0.1 10 ^3/uL (0-0.2); Basophils % (auto) 0.4 % (0.0-2.0); Eosinophils # (auto) 0.3 10 ^3/uL (0-0.8); Eosinophils % (auto) 2.3 % (0.0-7.0); Hematocrit 26.7 % (41.0-53.0); Hemoglobin 8.5 g/dL (13.5-17.5); Lymphocytes # (auto) 1.1 10 ^3/uL (0.4-5.4); Lymphocytes % (auto) 8.3 % (10.0-50.0); Mean Corpuscular Hemoglobin 32.1 pg (28.0-32.0); Mean Corpuscular Hgb Conc. 31.7 g/dL (32.0-36.0); Mean Corpuscular Volume 101.3 fL (80.0-100.0); Monocytes # (auto) 1.2 10 ^3/uL (0-1.3); Monocytes % (auto) 8.8 % (0.0-12.0); Neutrophils # (auto) 10.6 10 ^3/uL (1.6-8.6); Neutrophils % (auto) 80.2 % (37.0-80.0); Nucleated Red Blood Cells % 3.6 %; Red Blood Cells 2.63 10^6/uL (4.5-5.90); Red Cell Distribution Width 15.9 % (11.8-14.3); White Blood Cell 13.2 10^3/uL (4.4-10.8)
[2021-02-27 07:59] LABS: Potassium 5.3 mmol/L (3.5-5.1)
[2021-02-27 08:03] LABS: Calcium 7.5 mg/dL (8.5-10.1)
[2021-02-27] MEDS: PANTOPRAZOLE 40 MG/10 ML VIAL INJ IV SCH (09:37)
[2021-02-27] MEDS: CARVEDILOL 3.125 MG TAB PO SCH (09:37)
[2021-02-27] MEDS: ASPirin 81 mg TAB PO SCH (09:37)
[2021-02-27] MEDS: TICAGRELOR 90 MG TAB PO SCH ×2 (09:37→22:00)
[2021-02-27 09:42] VITALS: BP 108/45
[2021-02-27 14:09] VITALS: BP 101/45
[2021-02-27 18:20] VITALS: BP 117/50
[2021-02-27] MEDS: NOREPINEPHRINE 8 MG/250ML KIT 250 ML IV SCH (18:39)
[2021-02-27 21:45] VITALS: BP 123/54
[2021-02-28 02:20] VITALS: BP 114/53
[2021-02-28 07:50] VITALS: BP 128/47
[2021-02-28 08:05] LABS: Hematocrit 27.1 % (41.0-53.0); Hemoglobin 8.6 g/dL (13.5-17.5); Mean Corpuscular Hemoglobin 32.3 pg (28.0-32.0); Mean Corpuscular Hgb Conc. 31.8 g/dL (32.0-36.0); Mean Corpuscular Volume 101.7 fL (80.0-100.0); Red Blood Cells 2.67 10^6/uL (4.5-5.90); Red Cell Distribution Width 16.5 % (11.8-14.3); White Blood Cell 14.5 10^3/uL (4.4-10.8)
[2021-02-28 08:10] LABS: BUN/Creatinine Ratio 8.7; Calcium 7.3 mg/dL (8.5-10.1)
[2021-02-28 08:11] LABS: Basophils % (manual) 0 (0.0-2.0); Blast Cells 0; Metamyelocytes % 0; Myelocytes % 0; Promyelocytes % 0; Reactive Lymphocytes 0
[2021-02-28] MEDS: fentaNYL Drip 2500mCg/250mlNS 250 ML IV SCH (08:14)
[2021-02-28] MEDS: SODIUM CHLOR 0.9% PF (SALINE LOCK) 10ML VIAL/SYR IV SCH ×3 (08:15→22:00)
[2021-02-28] MEDS: PROPOFOL 100 ML IV SCH (08:15)
[2021-02-28 08:36] LABS: Potassium 6.1 mmol/L (3.5-5.1)
[2021-02-28] MEDS ORDERED: SODIUM ZIRCONIUM CYCL 10 GM PAK PO ONE (10:00)
[2021-02-28 10:30] VITALS: BP 110/45
[2021-02-28] MEDS: ASPirin 81 mg TAB PO SCH (11:18)
[2021-02-28] MEDS: TICAGRELOR 90 MG TAB PO SCH ×2 (11:18→22:00)
[2021-02-28] MEDS: PANTOPRAZOLE 40 MG/10 ML VIAL INJ IV SCH (11:18)
[2021-02-28 12:30] LABS: Band Neutrophils % (manual) 8; Eosinophils % (manual) 2 (0-7); Lymphocytes % (manual) 7 (10.0-50.0); Monocytes % (manual) 1 (0-12)
[2021-02-28] MEDS ORDERED: PHENYLEPHRINE IV 250 ML IV ONE (14:00)
[2021-02-28 14:07] VITALS: BP 136/57
[2021-02-28] MEDS: PHENYLEPHRINE IV 250 ML IV SCH ×2 (15:05→22:20)
[2021-02-28] MEDS: NOREPINEPHRINE 8 MG/250ML KIT 250 ML IV SCH (15:10)
[2021-02-28] MEDS: SODIUM BICARBONATE 8.4 % INJ 50ML VIAL IV SCH (17:03)
[2021-02-28] MEDS: PIPERACILLIN-TAZOB 2.25GM 50 ML IV SCH ×2 (18:16→21:26)
[2021-02-28 18:19] VITALS: BP 117/53
[2021-02-28 19:46] LABS: INR 1.57 (0.9-1.15)
[2021-02-28] MEDS: SODIUM BICARBONATE 650 MG TAB PO SCH (20:00)
[2021-02-28 20:11] LABS: Albumin 2.9 g/dL (3.4-5.0); Calcium 7.4 mg/dL (8.5-10.1); Potassium 4.8 mmol/L (3.5-5.1)
[2021-02-28 20:16] LABS: BUN/Creatinine Ratio 8.5; Bilirubin, Total 4.3 mg/dL (0.2-1.0); Total Protein 6.1 g/dL (6.4-8.2)
[2021-03-01 00:11] VITALS: BP 116/51
[2021-03-01] MEDS: fentaNYL Drip 2500mCg/250mlNS 250 ML IV SCH (00:30)
[2021-03-01] MEDS: PROPOFOL 100 ML IV SCH ×3 (00:45→16:04)
[2021-03-01] MEDS: SODIUM BICARBONATE 650 MG TAB PO SCH ×3 (04:00→19:33)
[2021-03-01] MEDS: SODIUM CHLOR 0.9% PF (SALINE LOCK) 10ML VIAL/SYR IV SCH ×3 (06:29→19:33)
[2021-03-01 06:32] LABS: Hemoglobin 7.9 g/dL (13.5-17.5); Mean Corpuscular Volume 103.9 fL (80.0-100.0); Red Cell Distribution Width 16.7 % (11.8-14.3)
[2021-03-01 06:34] LABS: Hematocrit 24.9 % (41.0-53.0); Mean Corpuscular Hgb Conc. 31.8 g/dL (32.0-36.0); White Blood Cell 10.5 10^3/uL (4.4-10.8)
[2021-03-01] MEDS: PHENYLEPHRINE IV 250 ML IV SCH ×3 (06:40→23:20)
[2021-03-01 06:45] LABS: BUN/Creatinine Ratio 9.1; Calcium 7.3 mg/dL (8.5-10.1); Potassium 4.7 mmol/L (3.5-5.1)
[2021-03-01 06:58] VITALS: BP 108/47
[2021-03-01] MEDS: PIPERACILLIN-TAZOB 2.25GM 50 ML IV SCH ×2 (09:25→19:33)
[2021-03-01] MEDS: ASPirin 81 mg TAB PO SCH (09:25)
[2021-03-01] MEDS: PANTOPRAZOLE 40 MG/10 ML VIAL INJ IV SCH (09:25)
[2021-03-01] MEDS ORDERED: DEXTROSE (50%) 50ML SYRG IV PRN ×2 (09:45→12:00)
[2021-03-01] MEDS: TICAGRELOR 90 MG TAB PO SCH (10:00)
[2021-03-01 10:38] VITALS: BP 107/49
[2021-03-01] MEDS ORDERED: ACCU-CHEK COMFORT CURVE STRIP VI SCH (12:00)
[2021-03-01] MEDS ORDERED: InsuLIN REG 1unit/0.01ml Soln (100units/ml) SC SCH (12:00)
[2021-03-01] MEDS: ACCU-CHEK COMFORT CURVE STRIP VI SCH ×8 (12:40→22:34)
[2021-03-01 13:21] LABS: Basophils % (manual) 0 (0.0-2.0); Blast Cells 0; Metamyelocytes % 0; Myelocytes % 0; Promyelocytes % 0; Reactive Lymphocytes 0
[2021-03-01 13:22] LABS: Band Neutrophils % (manual) 10; Eosinophils % (manual) 4 (0-7); Lymphocytes % (manual) 13 (10.0-50.0); Monocytes % (manual) 5 (0-12)
[2021-03-01] MEDS: InsuLIN R (HUMAN) 100 UNITS in SODIUM CHL 0.9% 99 ML IV SCH (13:25)
[2021-03-01 14:50] VITALS: BP 105/33
[2021-03-01] MEDS ORDERED: NOREPINEPHRINE 8 MG/250ML KIT 250 ML IV ONE (14:55)
[2021-03-01] MEDS: NOREPINEPHRINE 8 MG/250ML KIT 250 ML IV SCH (14:59)
[2021-03-01] MEDS ORDERED: PROPOFOL 100 ML IV ONE (16:02)
[2021-03-01] MEDS ORDERED: ACETAMINOPHEN 325 MG TAB PO ONE ×2 (16:24→16:30)
[2021-03-01 17:40] VITALS: BP 114/35
[2021-03-01 22:48] VITALS: BP 124/38
[2021-03-02] VITALS (16 sets, daily range): BP systolic 87–128; BP diastolic 45–60
[2021-03-02] MEDS: fentaNYL Drip 2500mCg/250mlNS 250 ML IV SCH (00:30)
[2021-03-02] MEDS: ACCU-CHEK COMFORT CURVE STRIP VI SCH ×16 (00:49→22:30)
[2021-03-02] MEDS: PIPERACILLIN-TAZOB 2.25GM 50 ML IV SCH ×3 (02:56→17:58)
[2021-03-02] MEDS: SODIUM CHLOR 0.9% PF (SALINE LOCK) 10ML VIAL/SYR IV SCH ×3 (06:07→22:00)
[2021-03-02] MEDS: SODIUM BICARBONATE 650 MG TAB PO SCH ×3 (06:56→20:00)
[2021-03-02] MEDS ORDERED: SODIUM CHL 0.9% 1000 ML BAG XX ONE (07:00)
[2021-03-02] MEDS: PHENYLEPHRINE IV 250 ML IV SCH (09:58)
[2021-03-02 10:40] LABS: Hemoglobin 9.7 g/dL (13.5-17.5); Lymphocytes # (auto) 0.8 10 ^3/uL (0.4-5.4); Lymphocytes % (auto) 8.2 % (10.0-50.0); Mean Corpuscular Hgb Conc. 33.8 g/dL (32.0-36.0); Nucleated Red Blood Cells % 5.9 %; Red Blood Cells 2.82 10^6/uL (4.5-5.90)
[2021-03-02 10:43] LABS: Basophils # (auto) 0.1 10 ^3/uL (0-0.2); Basophils % (auto) 0.7 % (0.0-2.0); Eosinophils # (auto) 0.2 10 ^3/uL (0-0.8); Eosinophils % (auto) 2.5 % (0.0-7.0); Hematocrit 28.6 % (41.0-53.0); Mean Corpuscular Hemoglobin 34.3 pg (28.0-32.0); Monocytes # (auto) 0.8 10 ^3/uL (0-1.3); Monocytes % (auto) 8.1 % (0.0-12.0); Neutrophils % (auto) 80.5 % (37.0-80.0); Red Cell Distribution Width 15.7 % (11.8-14.3); White Blood Cell 9.9 10^3/uL (4.4-10.8)
[2021-03-02 10:44] LABS: Mean Corpuscular Volume 101.3 fL (80.0-100.0)
[2021-03-02 11:00] LABS: BUN/Creatinine Ratio 8.8; Calcium 7.9 mg/dL (8.5-10.1); Magnesium 3.3 mg/dL (1.6-2.6); Potassium 4.9 mmol/L (3.5-5.1)
[2021-03-02] MEDS: PANTOPRAZOLE 40 MG/10 ML VIAL INJ IV SCH (11:21)
[2021-03-02] MEDS: InsuLIN R (HUMAN) 100 UNITS in SODIUM CHL 0.9% 99 ML IV SCH (13:11)
[2021-03-02] MEDS ORDERED: ALBUMIN 25% 100 ML IV ONE (16:30)
[2021-03-02] MEDS: PROPOFOL 100 ML IV SCH (18:37)
[2021-03-02 22:09] LABS: Albumin 2.6 g/dL (3.4-5.0); Calcium 8.1 mg/dL (8.5-10.1); Potassium 3.7 mmol/L (3.5-5.1)
[2021-03-02 22:11] LABS: Total Protein 6.1 g/dL (6.4-8.2)
[2021-03-03] VITALS (32 sets, daily range): BP systolic 93–119; BP diastolic 46–78
[2021-03-03] MEDS: PROPOFOL 100 ML IV SCH ×2 (01:23→18:17)
[2021-03-03] MEDS: PIPERACILLIN-TAZOB 2.25GM 50 ML IV SCH ×3 (01:23→18:17)
[2021-03-03] MEDS: ACCU-CHEK COMFORT CURVE STRIP VI SCH ×10 (01:30→20:14)
[2021-03-03] MEDS: SODIUM BICARBONATE 650 MG TAB PO SCH ×3 (04:00→20:00)
[2021-03-03 04:58] LABS: Calcium 8.3 mg/dL (8.5-10.1); Chloride 97 mmol/L (98-107); Potassium 4.2 mmol/L (3.5-5.1); Sodium 136 mmol/L (136-145)
[2021-03-03 05:02] LABS: Anion Gap 20 (5-15); BUN/Creatinine Ratio 8.1; Blood Urea Nitrogen 71 mg/dL (7-18); Carbon Dioxide 19 mmol/L (21-32); GFR African American 8 mL/min; GFR Non-African American 7 mL/min; Glucose 212 mg/dL (74-106)
[2021-03-03] MEDS: SODIUM CHLOR 0.9% PF (SALINE LOCK) 10ML VIAL/SYR IV SCH ×3 (06:00→22:00)
[2021-03-03] MEDS ORDERED: DEXTROSE (50%) 50ML SYRG IV PRN ×2 (07:30→14:30)
[2021-03-03] MEDS ORDERED: InsuLIN R (HUMAN) 100 UNITS in SODIUM CHL 0.9% 99 ML IV SCH ×2 (07:30→09:15)
[2021-03-03] MEDS: PANTOPRAZOLE 40 MG/10 ML VIAL INJ IV SCH (10:00)
[2021-03-03] MEDS: MORPHINE SULFATE INJECTION 2 MG/ML SYRG IV PRN (12:16)
[2021-03-03] MEDS ORDERED: ATO40T PO (15:27)
[2021-03-03] MEDS ORDERED: CEPH500C PO (15:27)
[2021-03-03] MEDS ORDERED: ISO60SRT PO (15:27)
[2021-03-03] MEDS ORDERED: OMEP-260 PO (15:27)
[2021-03-03] MEDS ORDERED: CLOP75TA28 PO (15:27)
[2021-03-03] MEDS ORDERED: ASPI1TAB37 PO (15:27)
[2021-03-03] MEDS ORDERED: CALC667C PO (15:27)
[2021-03-03] MEDS: InsuLIN REG 1unit/0.01ml Soln (100units/ml) SC SCH ×2 (16:21→20:14)
[2021-03-03 16:43] LABS: BUN/Creatinine Ratio 8.2; Calcium 8.1 mg/dL (8.5-10.1); Eosinophils # (auto) 0.2 10 ^3/uL (0-0.8); Hemoglobin 9.6 g/dL (13.5-17.5); Mean Corpuscular Hgb Conc. 33.4 g/dL (32.0-36.0); Monocytes # (auto) 0.7 10 ^3/uL (0-1.3); Potassium 4.3 mmol/L (3.5-5.1); Red Blood Cells 2.83 10^6/uL (4.5-5.90)
[2021-03-03 16:45] LABS: Basophils # (auto) 0.1 10 ^3/uL (0-0.2); Basophils % (auto) 0.6 % (0.0-2.0); Eosinophils % (auto) 1.9 % (0.0-7.0); Hematocrit 28.9 % (41.0-53.0); Lymphocytes # (auto) 0.8 10 ^3/uL (0.4-5.4); Neutrophils % (auto) 82.5 % (37.0-80.0); Nucleated Red Blood Cells % 3.4 %; Red Cell Distribution Width 16.2 % (11.8-14.3); White Blood Cell 9.7 10^3/uL (4.4-10.8)
[2021-03-03] MEDS: NOREPINEPHRINE 8 MG/250ML KIT 250 ML IV SCH (18:17)
[2021-03-03] MEDS: INSULIN LANTUS (GLARGINE) 1 /0.01ml (100units/ml) SC SCH (22:00)
[2021-03-04] VITALS (58 sets, daily range): BP systolic 73–152; BP diastolic 39–71
[2021-03-04] MEDS: fentaNYL Drip 2500mCg/250mlNS 250 ML IV SCH (00:30)
[2021-03-04] MEDS: PIPERACILLIN-TAZOB 2.25GM 50 ML IV SCH (01:07)
[2021-03-04] MEDS: PROPOFOL 100 ML IV SCH ×3 (03:18→20:29)
[2021-03-04] MEDS: SODIUM BICARBONATE 650 MG TAB PO SCH ×3 (03:45→20:00)
[2021-03-04 03:58] LABS: Basophils # (auto) 0.1 10 ^3/uL (0-0.2); Basophils % (auto) 0.6 % (0.0-2.0); Eosinophils # (auto) 0.1 10 ^3/uL (0-0.8); Hematocrit 30.4 % (41.0-53.0); Hemoglobin 10.1 g/dL (13.5-17.5); Lymphocytes % (auto) 9.3 % (10.0-50.0); Mean Corpuscular Hgb Conc. 33.2 g/dL (32.0-36.0); Mean Corpuscular Volume 102.3 fL (80.0-100.0); Monocytes # (auto) 0.8 10 ^3/uL (0-1.3); Monocytes % (auto) 8.3 % (0.0-12.0); Neutrophils # (auto) 8.3 10 ^3/uL (1.6-8.6); Neutrophils % (auto) 80.8 % (37.0-80.0); Nucleated Red Blood Cells % 2.7 %; Red Blood Cells 2.97 10^6/uL (4.5-5.90); Red Cell Distribution Width 16.4 % (11.8-14.3); White Blood Cell 10.2 10^3/uL (4.4-10.8)
[2021-03-04] MEDS: InsuLIN REG 1unit/0.01ml Soln (100units/ml) SC SCH ×6 (04:00→20:00)
[2021-03-04] MEDS: ACCU-CHEK COMFORT CURVE STRIP VI SCH ×6 (04:00→20:00)
[2021-03-04 04:04] LABS: Potassium 4.3 mmol/L (3.5-5.1)
[2021-03-04 04:10] LABS: Albumin 2.2 g/dL (3.4-5.0); Bilirubin, Total 7.4 mg/dL (0.2-1.0); Total Protein 6.2 g/dL (6.4-8.2)
[2021-03-04] MEDS: NOREPINEPHRINE 8 MG/250ML KIT 250 ML IV SCH (05:43)
[2021-03-04] MEDS: SODIUM CHLOR 0.9% PF (SALINE LOCK) 10ML VIAL/SYR IV SCH ×3 (06:00→21:25)
[2021-03-04] MEDS: INSULIN LANTUS (GLARGINE) 1 /0.01ml (100units/ml) SC SCH ×2 (07:00→21:33)
[2021-03-04] MEDS ORDERED: SODIUM CHL 0.9% 1000 ML BAG XX ONE (07:00)
[2021-03-04] MEDS: PANTOPRAZOLE 40 MG/10 ML VIAL INJ IV SCH (10:00)
[2021-03-04] MEDS: ASPirin 81 mg TAB PO SCH (12:30)
[2021-03-04] MEDS: PHENYLEPHRINE IV 250 ML IV SCH (16:57)
[2021-03-04] MEDS: Nepro With Carb Steady 1 Liter Bottle GT SCH (21:38)
[2021-03-05] VITALS (49 sets, daily range): BP systolic 96–123; BP diastolic 42–70
[2021-03-05] MEDS: ACCU-CHEK COMFORT CURVE STRIP VI SCH ×6 (00:20→20:07)
[2021-03-05] MEDS: fentaNYL Drip 2500mCg/250mlNS 250 ML IV SCH (00:30)
[2021-03-05] MEDS: InsuLIN REG 1unit/0.01ml Soln (100units/ml) SC SCH ×6 (00:35→20:00)
[2021-03-05] MEDS: NOREPINEPHRINE 8 MG/250ML KIT 250 ML IV SCH ×2 (03:27→19:48)
[2021-03-05] MEDS: SODIUM BICARBONATE 650 MG TAB PO SCH ×3 (03:28→20:24)
[2021-03-05] MEDS: MORPHINE SULFATE INJECTION 2 MG/ML SYRG IV PRN (03:57)
[2021-03-05] MEDS: PROPOFOL 100 ML IV SCH (03:58)
[2021-03-05] MEDS: INSULIN LANTUS (GLARGINE) 1 /0.01ml (100units/ml) SC SCH ×2 (05:56→22:00)
[2021-03-05] MEDS: SODIUM CHLOR 0.9% PF (SALINE LOCK) 10ML VIAL/SYR IV SCH ×3 (06:00→22:00)
[2021-03-05] MEDS: PHENYLEPHRINE IV 250 ML IV SCH ×2 (08:00→10:40)
[2021-03-05] MEDS: PANTOPRAZOLE 40 MG/10 ML VIAL INJ IV SCH (10:25)
[2021-03-05] MEDS: ASPirin 81 mg TAB PO SCH (10:25)
[2021-03-05 11:05] LABS: Chloride 97 mmol/L (98-107); Sodium 135 mmol/L (136-145)
[2021-03-05 11:17] LABS: Albumin 1.9 g/dL (3.4-5.0); Alkaline Phosphatase 196 U/L (45-117); Anion Gap 17 (5-15); Aspartate Aminotransferase 214 U/L (15-37); BUN/Creatinine Ratio 7.3; Bilirubin, Total 9.4 mg/dL (0.2-1.0); Blood Urea Nitrogen 61 mg/dL (7-18); Carbon Dioxide 21 mmol/L (21-32); GFR African American 8 mL/min; GFR Non-African American 7 mL/min; Glucose 249 mg/dL (74-106); Total Protein 6.6 g/dL (6.4-8.2)
[2021-03-05 12:28] LABS: Alanine Aminotransferase 202 U/L (16-61)
[2021-03-05 12:29] LABS: Potassium 5.8 mmol/L (3.5-5.1)
[2021-03-05] MEDS ORDERED: SODIUM ZIRCONIUM CYCL 10 GM PAK PO ONE (13:45)
[2021-03-06] VITALS (63 sets, daily range): BP systolic 89–177; BP diastolic 40–74
[2021-03-06] MEDS: fentaNYL Drip 2500mCg/250mlNS 250 ML IV SCH (00:30)
[2021-03-06 03:34] LABS: Eosinophils # (auto) 0.1 10 ^3/uL (0-0.8); Eosinophils % (auto) 0.9 % (0.0-7.0); Hemoglobin 9.4 g/dL (13.5-17.5); Lymphocytes # (auto) 0.7 10 ^3/uL (0.4-5.4); Mean Corpuscular Hgb Conc. 32.4 g/dL (32.0-36.0)
[2021-03-06 03:36] LABS: Basophils # (auto) 0 10 ^3/uL (0-0.2); Basophils % (auto) 0.2 % (0.0-2.0); Hematocrit 29.1 % (41.0-53.0); Lymphocytes % (auto) 5.3 % (10.0-50.0); Mean Corpuscular Hemoglobin 33.6 pg (28.0-32.0); Mean Corpuscular Volume 103.8 fL (80.0-100.0); Monocytes % (auto) 7.6 % (0.0-12.0); Neutrophils # (auto) 10.9 10 ^3/uL (1.6-8.6); Nucleated Red Blood Cells % 0.3 %; White Blood Cell 12.6 10^3/uL (4.4-10.8)
[2021-03-06 03:41] LABS: Red Cell Distribution Width 22.2 % (11.8-14.3)
[2021-03-06] MEDS: ACCU-CHEK COMFORT CURVE STRIP VI SCH ×6 (04:00→20:00)
[2021-03-06 04:01] LABS: Calcium 8.3 mg/dL (8.5-10.1)
[2021-03-06] MEDS: InsuLIN REG 1unit/0.01ml Soln (100units/ml) SC SCH ×6 (05:13→21:10)
[2021-03-06] MEDS ORDERED: SODIUM CHL 0.9% 1000 ML BAG XX ONE (07:00)
[2021-03-06] MEDS: INSULIN LANTUS (GLARGINE) 1 /0.01ml (100units/ml) SC SCH ×2 (07:14→23:46)
[2021-03-06] MEDS: ASPirin 81 mg TAB PO SCH (10:19)
[2021-03-06] MEDS: PANTOPRAZOLE 40 MG/10 ML VIAL INJ IV SCH (10:19)
[2021-03-06] MEDS: NOREPINEPHRINE 8 MG/250ML KIT 250 ML IV SCH (10:19)
[2021-03-06] MEDS: SODIUM BICARBONATE 650 MG TAB PO SCH ×2 (12:00→20:00)
[2021-03-06] MEDS: SODIUM CHLOR 0.9% PF (SALINE LOCK) 10ML VIAL/SYR IV SCH ×2 (14:00→22:00)
[2021-03-07] VITALS (29 sets, daily range): BP systolic 71–126; BP diastolic 31–58
[2021-03-07] MEDS: InsuLIN REG 1unit/0.01ml Soln (100units/ml) SC SCH ×6 (00:05→20:00)
[2021-03-07] MEDS: ACCU-CHEK COMFORT CURVE STRIP VI SCH ×6 (00:06→20:00)
[2021-03-07] MEDS: fentaNYL Drip 2500mCg/250mlNS 250 ML IV SCH ×2 (00:30→07:45)
[2021-03-07] MEDS: PROPOFOL 100 ML IV SCH (00:45)
[2021-03-07] MEDS: SODIUM BICARBONATE 650 MG TAB PO SCH ×3 (04:00→20:00)
[2021-03-07 04:23] LABS: Basophils # (auto) 0.1 10 ^3/uL (0-0.2); Mean Corpuscular Hgb Conc. 31.8 g/dL (32.0-36.0); Red Blood Cells 2.95 10^6/uL (4.5-5.90); White Blood Cell 14.4 10^3/uL (4.4-10.8)
[2021-03-07 04:29] LABS: Basophils % (auto) 0.4 % (0.0-2.0); Eosinophils # (auto) 0.1 10 ^3/uL (0-0.8); Eosinophils % (auto) 0.8 % (0.0-7.0); Hematocrit 31.3 % (41.0-53.0); Lymphocytes # (auto) 0.9 10 ^3/uL (0.4-5.4); Lymphocytes % (auto) 6.3 % (10.0-50.0); Mean Corpuscular Hemoglobin 33.8 pg (28.0-32.0); Mean Corpuscular Volume 106.1 fL (80.0-100.0); Monocytes # (auto) 1.8 10 ^3/uL (0-1.3); Monocytes % (auto) 12.2 % (0.0-12.0); Neutrophils # (auto) 11.6 10 ^3/uL (1.6-8.6); Neutrophils % (auto) 80.3 % (37.0-80.0); Nucleated Red Blood Cells % 0.4 %
[2021-03-07 04:37] LABS: Potassium 3.5 mmol/L (3.5-5.1)
[2021-03-07 04:47] LABS: Albumin 2.1 g/dL (3.4-5.0); BUN/Creatinine Ratio 7.4; Bilirubin, Total 9.5 mg/dL (0.2-1.0); Magnesium 3.6 mg/dL (1.6-2.6)
[2021-03-07 05:15] LABS: Red Cell Distribution Width 23.7 % (11.8-14.3)
[2021-03-07] MEDS: SODIUM CHLOR 0.9% PF (SALINE LOCK) 10ML VIAL/SYR IV SCH ×3 (06:00→22:00)
[2021-03-07] MEDS: INSULIN LANTUS (GLARGINE) 1 /0.01ml (100units/ml) SC SCH ×2 (06:43→22:00)
[2021-03-07] MEDS: PHENYLEPHRINE IV 250 ML IV SCH ×2 (07:46→21:00)
[2021-03-07] MEDS: PANTOPRAZOLE 40 MG/10 ML VIAL INJ IV SCH (10:00)
[2021-03-07] MEDS: ASPirin 81 mg TAB PO SCH (10:00)
[2021-03-07] MEDS ORDERED: HEPARIN SODIUM (PORCINE) 5000 UNITS/ML 1ML VIAL IV ONE (12:30)
[2021-03-07 15:45] LABS: INR 1.27 (0.9-1.15); Partial Thromboplastin Time 31.3 sec (23.6-33.0)
[2021-03-07] MEDS: HEPARIN DRIP/D5W 100UNITS/ML 250 ML IV SCH (16:47)
[2021-03-07] MEDS: NOREPINEPHRINE 8 MG/250ML KIT 250 ML IV SCH (19:48)
[2021-03-08] VITALS (33 sets, daily range): BP systolic 83–111; BP diastolic 29–57
[2021-03-08] MEDS: ACCU-CHEK COMFORT CURVE STRIP VI SCH ×6 (00:09→20:00)
[2021-03-08] MEDS: InsuLIN REG 1unit/0.01ml Soln (100units/ml) SC SCH ×7 (00:12→20:00)
[2021-03-08] MEDS: fentaNYL Drip 2500mCg/250mlNS 250 ML IV SCH (00:30)
[2021-03-08] MEDS: PROPOFOL 100 ML IV SCH (00:45)
[2021-03-08] MEDS: SODIUM BICARBONATE 650 MG TAB PO SCH ×3 (04:00→20:00)
[2021-03-08] MEDS: PHENYLEPHRINE IV 250 ML IV SCH ×2 (05:20→13:40)
[2021-03-08] MEDS: INSULIN LANTUS (GLARGINE) 1 /0.01ml (100units/ml) SC SCH ×2 (05:36→20:55)
[2021-03-08] MEDS: SODIUM CHLOR 0.9% PF (SALINE LOCK) 10ML VIAL/SYR IV SCH ×3 (05:37→20:55)
[2021-03-08] MEDS: Nepro With Carb Steady 1 Liter Bottle GT SCH (05:38)
[2021-03-08] MEDS: HEPARIN DRIP/D5W 100UNITS/ML 250 ML IV SCH (06:22)
[2021-03-08 06:53] LABS: INR 1.54 (0.9-1.15)
[2021-03-08 06:56] LABS: Albumin 1.6 g/dL (3.4-5.0); BUN/Creatinine Ratio 7.9; Calcium 7.9 mg/dL (8.5-10.1)
[2021-03-08 06:59] LABS: Bilirubin, Total 10.4 mg/dL (0.2-1.0); Total Protein 6.1 g/dL (6.4-8.2)
[2021-03-08 07:05] LABS: Partial Thromboplastin Time > 139.0 sec (23.6-33.0)
[2021-03-08] MEDS ORDERED: DEXTROSE (25%) 10 ML SYRG IV ONE (09:00)
[2021-03-08] MEDS ORDERED: DEXTROSE 10% 250 ML IV ONE (09:15)
[2021-03-08 09:23] LABS: Basophils # (auto) 0.1 10 ^3/uL (0-0.2); Nucleated Red Blood Cells % 0.2 %
[2021-03-08 09:24] LABS: Basophils % (auto) 0.5 % (0.0-2.0); Eosinophils # (auto) 0 10 ^3/uL (0-0.8); Eosinophils % (auto) 0.4 % (0.0-7.0); Hematocrit 27.3 % (41.0-53.0); Lymphocytes # (auto) 0.8 10 ^3/uL (0.4-5.4); Lymphocytes % (auto) 6.7 % (10.0-50.0); Mean Corpuscular Hemoglobin 33.6 pg (28.0-32.0); Mean Corpuscular Hgb Conc. 32.8 g/dL (32.0-36.0); Monocytes # (auto) 0.7 10 ^3/uL (0-1.3); Monocytes % (auto) 6.1 % (0.0-12.0); Neutrophils # (auto) 10.4 10 ^3/uL (1.6-8.6); Neutrophils % (auto) 86.3 % (37.0-80.0); Red Blood Cells 2.66 10^6/uL (4.5-5.90); White Blood Cell 12.1 10^3/uL (4.4-10.8)
[2021-03-08] MEDS: PANTOPRAZOLE 40 MG/10 ML VIAL INJ IV SCH (10:00)
[2021-03-08] MEDS: ASPirin 81 mg TAB PO SCH (10:00)
[2021-03-08 10:07] LABS: Mean Corpuscular Volume 102.5 fL (80.0-100.0); Red Cell Distribution Width 22.7 % (11.8-14.3)
[2021-03-08 12:47] LABS: INR 1.44 (0.9-1.15); Partial Thromboplastin Time 43.9 sec (23.6-33.0)
[2021-03-08 20:51] LABS: INR 1.51 (0.9-1.15)
[2021-03-08] MEDS: NOREPINEPHRINE 8 MG/250ML KIT 250 ML IV SCH (20:52)
[2021-03-09] VITALS: BP 108/48
[2021-03-09] MEDS: ACCU-CHEK COMFORT CURVE STRIP VI SCH
[2021-03-09 00:03] LABS: Basophils # (auto) 0.1 10 ^3/uL (0-0.2); Eosinophils # (auto) 0 10 ^3/uL (0-0.8); Eosinophils % (auto) 0.1 % (0.0-7.0); Lymphocytes # (auto) 1.6 10 ^3/uL (0.4-5.4); Monocytes # (auto) 1.3 10 ^3/uL (0-1.3); Monocytes % (auto) 7.2 % (0.0-12.0)
[2021-03-09 00:05] LABS: Basophils % (auto) 0.6 % (0.0-2.0); Hematocrit 29.5 % (41.0-53.0); Hemoglobin 9.5 g/dL (13.5-17.5); Lymphocytes % (auto) 8.5 % (10.0-50.0); Mean Corpuscular Hemoglobin 33.4 pg (28.0-32.0); Mean Corpuscular Hgb Conc. 32.1 g/dL (32.0-36.0); Neutrophils # (auto) 15.4 10 ^3/uL (1.6-8.6); Neutrophils % (auto) 83.6 % (37.0-80.0); Nucleated Red Blood Cells % 0.4 %; Red Blood Cells 2.83 10^6/uL (4.5-5.90); White Blood Cell 18.5 10^3/uL (4.4-10.8)
[2021-03-09] MEDS: InsuLIN REG 1unit/0.01ml Soln (100units/ml) SC SCH (00:11)
[2021-03-09 00:33] LABS: INR 1.54 (0.9-1.15)
[2021-03-09 00:42] LABS: Partial Thromboplastin Time 94.9 sec (23.6-33.0)
[2021-03-09 01:50] LABS: Albumin 1.6 g/dL (3.4-5.0); BUN/Creatinine Ratio 8.8; Calcium 7.7 mg/dL (8.5-10.1); Potassium 4.6 mmol/L (3.5-5.1)
[2021-03-09 01:53] LABS: Bilirubin, Total 10.7 mg/dL (0.2-1.0); Total Protein 6.3 g/dL (6.4-8.2)
[2021-03-09] MEDS ORDERED: ATROPINE SULF 1 MG/10ml SYR IV ONE (02:34)
[2021-03-09] MEDS ORDERED: SODIUM CHL 0.9% 1000 ML BAG XX ONE (07:00)
== END 2021-03-09 02:35 | DRG 870 ==
LOC: ER 16:59 → TELE 02-24 08:58 → CATH ICU 03-02 15:04
PROVIDERS: ADMIT Internal Medicine; ATTEND Internal Medicine Geriatric Medicine
PROC: 5A1D70Z Performance of Urinary Filtration, Intermittent, Less than 6 Hours Per Day (ICD-10-PCS; 2021-02-24)
PROC: 05HM33Z Insertion of Infusion Device into Right Internal Jugular Vein, Percutaneous Approach (ICD-10-PCS; 2021-02-24)
PROC: B543ZZA Ultrasonography of Right Jugular Veins, Guidance (ICD-10-PCS; 2021-02-24)
PROC: 5A12012 Performance of Cardiac Output, Single, Manual (ICD-10-PCS; 2021-02-24)
PROC: 5A1955Z Respiratory Ventilation, Greater than 96 Consecutive Hours (ICD-10-PCS; principal; 2021-02-25)
PROC: 0BH17EZ Insertion of Endotracheal Airway into Trachea, Via Natural or Artificial Opening (ICD-10-PCS; 2021-02-25)
PROC: 5A1D70Z Performance of Urinary Filtration, Intermittent, Less than 6 Hours Per Day (ICD-10-PCS; 2021-02-26)
PROC: 5A1D70Z Performance of Urinary Filtration, Intermittent, Less than 6 Hours Per Day (ICD-10-PCS; 2021-02-28)
PROC: 5A1D70Z Performance of Urinary Filtration, Intermittent, Less than 6 Hours Per Day (ICD-10-PCS; 2021-03-02)
PROC: 5A1D70Z Performance of Urinary Filtration, Intermittent, Less than 6 Hours Per Day (ICD-10-PCS; 2021-03-04)
PROC: 5A1D70Z Performance of Urinary Filtration, Intermittent, Less than 6 Hours Per Day (ICD-10-PCS; 2021-03-06)
PROC: 5A12012 Performance of Cardiac Output, Single, Manual (ICD-10-PCS; 2021-03-09)
DX: A41.9 Sepsis, unspecified organism (principal); J96.01 Acute respiratory failure with hypoxia; E11.10 Type 2 diabetes mellitus with ketoacidosis without coma; I21.4 Non-ST elevation (NSTEMI) myocardial infarction; N18.6 End stage renal disease; K72.00 Acute and subacute hepatic failure without coma; I50.23 Acute on chronic systolic (congestive) heart failure; E87.1 Hypo-osmolality and hyponatremia; E87.3 Alkalosis; G93.49 Other encephalopathy; J98.11 Atelectasis; N17.9 Acute kidney failure, unspecified; I13.2 Hypertensive heart and chronic kidney disease with heart failure and with stage 5 chronic kidney disease, or end stage renal disease; I46.9 Cardiac arrest, cause unspecified; Z99.2 Dependence on renal dialysis; E11.40 Type 2 diabetes mellitus with diabetic neuropathy, unspecified; D63.1 Anemia in chronic kidney disease; E87.5 Hyperkalemia; I25.10 Atherosclerotic heart disease of native coronary artery without angina pectoris; E66.9 Obesity, unspecified; K76.0 Fatty (change of) liver, not elsewhere classified; E11.22 Type 2 diabetes mellitus with diabetic chronic kidney disease; I95.9 Hypotension, unspecified; D69.6 Thrombocytopenia, unspecified; R79.89 Other specified abnormal findings of blood chemistry; E11.51 Type 2 diabetes mellitus with diabetic peripheral angiopathy without gangrene; M89.8X9 Other specified disorders of bone, unspecified site; I99.8 Other disorder of circulatory system; R00.1 Bradycardia, unspecified; E78.5 Hyperlipidemia, unspecified; Z20.822 Contact with and (suspected) exposure to COVID-19; Z79.899 Other long term (current) drug therapy; Z80.1 Family history of malignant neoplasm of trachea, bronchus and lung; Z85.118 Personal history of other malignant neoplasm of bronchus and lung; Z98.61 Coronary angioplasty status; Z89.421 Acquired absence of other right toe(s); Z68.29 Body mass index [BMI] 29.0-29.9, adult
CPT/HCPCS: 36415; 36600; 70450; 71045; 76705; 80048; 80053; 80074; 80202; 82140; 82550; 82805; 82962; 83605; 83615; 83735; 84484; 85007; 85025; 85027; 85610; 85730; 86704; 86706; 86708; 86803; 87040; 87070; 87081; 87086; 87205; 87340; 87426; 90935; 92950; 93005; 93306; 93925; 94002; 94003; 96374; C9113; G0378; J1815; J2543; J2704; P9047